=== PATIENT | female | born 1985 | race Caucasian/White ===

== ENCOUNTER 2019-02-04 10:54 | Outpatient (REF) | payer MEDICAID, SELFPAY ==
--- NOTE | 2019-02-04 11:20 | PAPFT_PTH ---
PATIENT: Sury Bhandari LOC: [facility] U#:[id number] AGE/SX: 33/F ROOM: RE02/04/[address]: Jessica Noguera RN : 1985 BED: DIS: 02/04/2019 SPEC #: [id number] RECD: 02/04/19 12:54 STATUS: [place] REJoe #: [id number] MADDI: 02/04/19 11:[address]: Jessica Noguera DEPT: [facility]LY [facility], [facility] Cytology RECD BY: Coretta Gonzalez ENTERED: 02/04/19 12:54 SP TYPE: PAPFT OTHR DR: Juani Reed DNP Tissues: 1 - CX/ENDOCX FOR PAP SMEARS Procedures: PAP THIN PREP/UVM Screening HPV DNA PROBE Comments: [id number]
[2019-02-04 11:59] LABS: *AMPHETAMINES SCREEN URINE Negative (Negative); *BARBITURATES SCREEN URINE Negative (Negative); *BENZODIAZEPINES SCREEN URINE Negative (Negative); Cannabinoids THC Negative (Negative); Cocaine Screen,Urine Negative (Negative); METHADONE URINE SCREEN Negative (Negative); OPIATES URINE SCREEN Negative (Negative)
[2019-02-04 12:10] LABS: Tricyclic Antidepressants Negative (Negative)
[2019-02-04 12:34] LABS: Abs Immature Grans 0.02 k/cumm (0.0-0.09); Absolute Basophil Count 0.01 k/cumm (0.0-0.2); Absolute Eosinophil Count 0.02 k/cumm (0.0-0.7); Absolute Lymphocyte Count 1.35 k/cumm (1.2-3.4); Absolute Monocyte Count 0.56 k/cumm (0.11-0.7); Absolute Neutrophil Count 6.09 k/cumm (1.2-6.7); Basophils % 0.1; Eosinophils % 0.2; HCT 38.7 % (36.0-46.0); HGB 13.2 g/dL (12.0-15.5); Immature Grans % 0.2; Lymphocytes % 16.8; Mean Corp. HGB Concentration 34.1 g/dL (32.0-36.0); Mean Corpuscular Hemoglobin 31.7 pg (27.0-33.0); Mean Corpuscular Volume 92.8 fL (80-95); Mean Platelet Volume 9.9 fL (8.0-11.0); Neutrophils % 75.7; Platelet Count 243 x1000/uL (130-400); RBC 4.17 m/cumm (4.00-5.20); RBC Distribution Width 12.1 % (11.7-14.6); White Blood Cell Count 8.05 k/cumm (4.4-10.8)
[2019-02-04 13:00] LABS: TSH (W/Ref FT4) 1.12 uIU/mL (0.36-3.74)
[2019-02-05 11:05] LABS: HIV-1/2 Ag & Ab Screen Negative (Negative)
[2019-02-05 11:06] LABS: Hepatitis B Surface Ag Negative (Negative); Hepatitis C Ab w Rflx HCV PCR Negative (Negative)
[2019-02-05 13:01] LABS: Rubella IgG Ab (UVM) Positive (See Note); Varicella IgG Antibody Positive (See Note)
[2019-02-05 15:15] LABS: Syphilis Total Ab w/Reflex Nonreactive (Nonreactive)
[2019-02-11 09:37] LABS: Chlamydia Result Negative (Negative)
[2019-02-11 09:40] LABS: GC Result Negative (Negative)
[2019-02-11 14:23] LABS: Buprenorphine Negative; Norbuprenorphine Negative
== END 2019-02-04 11:14 ==
LOC: LBN 10:54
PROVIDERS: PCP Nurse Practitioner Gerontology; Visit Provider Advanced Practice Midwife
DX: Z34.91 Encounter for supervision of normal pregnancy, unspecified, first trimester (principal); Z11.4 Encounter for screening for human immunodeficiency virus [HIV]; Z11.3 Encounter for screening for infections with a predominantly sexual mode of transmission; Z11.59 Encounter for screening for other viral diseases; Z01.84 Encounter for antibody response examination; Z12.4 Encounter for screening for malignant neoplasm of cervix
CPT/HCPCS: 36415; 80307; 86787; 86803; 86850; 86900; 86901; 87340; 87389; 87491; 87591; 88142; 84443; 85025; 86762; 86780; 87086; 87624

== ENCOUNTER 2019-02-06 08:03 | Outpatient (CLI) | payer MEDICAID, SELFPAY ==
[2019-02-06 09:08] LABS: Glucose,1 Hr (Glucola) 95 mg/dL (80-140)
== END 2019-02-06 08:23 ==
PROVIDERS: PCP Nurse Practitioner Gerontology; Visit Provider Advanced Practice Midwife
DX: Z34.91 Encounter for supervision of normal pregnancy, unspecified, first trimester (principal)
CPT/HCPCS: 36415; 82950

== ENCOUNTER 2019-03-04 10:11 | Outpatient (CLI) | payer MEDICAID, SELFPAY ==
[2019-03-04 10:31] LABS: Kit/Specimen SENT
== END 2019-03-04 10:31 ==
PROVIDERS: PCP Nurse Practitioner Gerontology; Visit Provider Advanced Practice Midwife
DX: Z34.92 Encounter for supervision of normal pregnancy, unspecified, second trimester (principal); Z36.89 Encounter for other specified antenatal screening
CPT/HCPCS: 36415

== ENCOUNTER 2019-03-26 00:46 | Outpatient (CLI) | payer MEDICAID, SELFPAY ==
--- NOTE | 2019-03-26 09:56 | DI.US_ITS ---
EXAM: US OB 2-3 TRIMESTER CLINICAL HISTORY: 18 wk anatomy survey, Z34.90 TECHNIQUE: Ultrasound performed using standard protocol. COMPARISON: No exams were available for comparison FINDINGS: Fetus is in breech position. The placenta is posterior and low lying. The edge of the placenta nirmal ures 1.7 cm from the internal os. The biometric measurements correspond to 18 weeks 6 days. No feta l abnormalities are identified.
== END 2019-03-26 01:06 ==
PROVIDERS: PCP Nurse Practitioner Gerontology; Visit Provider Advanced Practice Midwife
DX: Z34.92 Encounter for supervision of normal pregnancy, unspecified, second trimester (principal); Z3A.18 18 weeks gestation of pregnancy
CPT/HCPCS: 76805

== ENCOUNTER 2019-05-27 01:08 | Outpatient (CLI) | payer MEDICAID, SELFPAY ==
--- NOTE | 2019-05-27 08:00 | DI.US_ITS ---
EXAM: US OB F/U FACIAL/LVOT/RVOT CLINICAL HISTORY: low lying placenta looking for migration, Z34.90. COMPARISON: US OB 2-3 TRIMESTER from 03/26/2019 TECHNIQUE: Transabdominal Transvaginal first trimester obstetrical ultrasound performed. FINDINGS: Sonographic images demonstrate a single intrauterine gestation. Fetus is in the cephalic presentation. The heart rate is 150 beats per minute. The placenta is posterior. There is no evidence of previa. The placental tip is 4.2 cm in the inter nal os. IMPRESSION: Single, living intrauterine gestation. No evidence of placenta previa or low-lying placenta. DATA REPOSITORY:
[2019-05-27 10:42] LABS: HGB 11.6 g/dL (12.0-15.5); Mean Corp. HGB Concentration 33.1 g/dL (32.0-36.0); Mean Corpuscular Hemoglobin 31.4 pg (27.0-33.0); Mean Corpuscular Volume 94.9 fL (80-95); Mean Platelet Volume 9.9 fL (8.0-11.0); Platelet Count 206 x1000/uL (130-400); RBC 3.69 m/cumm (4.00-5.20); RBC Distribution Width 12.5 % (11.7-14.6); White Blood Cell Count 9.42 k/cumm (4.4-10.8)
[2019-05-27 10:49] LABS: Glucose,1 Hr (Glucola) 100 mg/dL (80-140)
== END 2019-05-27 01:28 ==
PROVIDERS: PCP Nurse Practitioner Gerontology; Visit Provider Advanced Practice Midwife
DX: Z34.92 Encounter for supervision of normal pregnancy, unspecified, second trimester (principal)
CPT/HCPCS: 36415; 76815; 82950; 85027

== ENCOUNTER 2019-07-29 12:22 | Outpatient (REF) | payer MEDICAID, SELFPAY ==
[2019-07-29 14:07] LABS: *AMPHETAMINES SCREEN URINE Negative (Negative); *BARBITURATES SCREEN URINE Negative (Negative); *BENZODIAZEPINES SCREEN URINE Negative (Negative); Cannabinoids THC Negative (Negative); Cocaine Screen,Urine Negative (Negative); METHADONE URINE SCREEN Negative (Negative); OPIATES URINE SCREEN Negative (Negative); Tricyclic Antidepressants Negative (Negative)
== END 2019-07-29 12:42 ==
LOC: LBN 12:22
PROVIDERS: PCP Nurse Practitioner Gerontology; Visit Provider Advanced Practice Midwife
DX: Z34.93 Encounter for supervision of normal pregnancy, unspecified, third trimester (principal); Z36.85 Encounter for antenatal screening for Streptococcus B; F11.11 Opioid abuse, in remission
CPT/HCPCS: 80307; 87081

== ENCOUNTER 2019-08-06 01:26 | Outpatient (CLI) | payer MEDICAID, SELFPAY ==
--- NOTE | 2019-08-06 06:00 | DI.US_ITS ---
EXAM: US OB KRYSTAL WEIGHT CLINICAL HISTORY: S>D,O26.843,SIZE OF FETUS INCONSISTENT. TECHNIQUE: Transabdominal obstetrical ultrasound performed. COMPARISON: US US OB F/U FACIAL/LVOT/RVOT from 05/27/2019 FINDINGS: There is a single living intrauterine gestation. The fetus is in the cephalic presentation. The heart rate is measured at 119-128 beats per min agustin. The estimated gestational age is 38 weeks 1 day. A complete anatomic evaluation was not perfor med at this time. The estimated weight is 3357 g. This is the 80th percentile. The amniotic fluid index is 21.1 cm. Visually the amniotic fluid appears within normal limits. The placenta is posterior without evidence of previa. IMPRESSION: Single live intrauterine gestation as above. DATA REPOSITORY:
== END 2019-08-06 01:46 ==
PROVIDERS: Visit Provider Advanced Practice Midwife
DX: O26.843 Uterine size-date discrepancy, third trimester (principal); Z3A.38 38 weeks gestation of pregnancy
CPT/HCPCS: 76816

== ENCOUNTER 2019-08-06 10:01 | Outpatient (REF) | payer MEDICAID, SELFPAY ==
[2019-08-06 10:40] LABS: ALT 27 U/L (14-59); AST 20 U/L (15-37); Albumin 2.6 g/dL (3.4-5.0); Alkaline Phosphatase 95 U/L (46-116); Anion Gap 7.6 mmol/L (3-11); BUN 4 mg/dL (7-18); Bilirubin, Total 0.2 mg/dL (0.2-1.0); CO2 25.4 mmol/L (21.0-32.0); CREATININE 0.62 mg/dL (0.55-1.02); Chloride 103 mmol/L (98-107); Glucose 102 mg/dL (74-106); Potassium 3.6 mmol/L (3.5-5.1); Sodium 136 mmol/L (136-145); Total Protein 6.3 g/dL (6.4-8.2)
[2019-08-06 10:52] LABS: Abs Immature Grans 0.02 k/cumm (0.0-0.09); Absolute Basophil Count 0.01 k/cumm (0.0-0.2); Absolute Eosinophil Count 0.05 k/cumm (0.0-0.7); Absolute Lymphocyte Count 1.96 k/cumm (1.2-3.4); Absolute Monocyte Count 0.88 k/cumm (0.11-0.7); Basophils % 0.1; Eosinophils % 0.6; HCT 36.7 % (36.0-46.0); HGB 12.2 g/dL (12.0-15.5); Immature Grans % 0.2 %; Lymphocytes % 22.5; Mean Corp. HGB Concentration 33.2 g/dL (32.0-36.0); Mean Corpuscular Hemoglobin 31.2 pg (27.0-33.0); Mean Corpuscular Volume 93.9 fL (80-95); Mean Platelet Volume 11.1 fL (8.0-11.0); Monocytes % 10.1; Neutrophils % 66.5; Platelet Count 183 x1000/uL (130-400); RBC 3.91 m/cumm (4.00-5.20); RBC Distribution Width 12.8 % (11.7-14.6); White Blood Cell Count 8.72 k/cumm (4.4-10.8)
[2019-08-06 11:33] LABS: COMMENT (LAB VIEW ONLY) 79.42 mg/dL; PROTEIN 12.7 mg/dL; Prot/Crea Ur Ratio 0.15
[2019-08-11 07:40] LABS: Buprenorphine Negative; Norbuprenorphine Negative
== END 2019-08-06 10:21 ==
LOC: LBN 10:01
PROVIDERS: Visit Provider Obstetrics & Gynecology
DX: O13.3 Gestational [pregnancy-induced] hypertension without significant proteinuria, third trimester (principal); O26.843 Uterine size-date discrepancy, third trimester
CPT/HCPCS: 80053; 80307; 82565; 84156; 85025

== ENCOUNTER 2019-08-16 08:19 | Outpatient (CLI) | payer MEDICAID, SELFPAY ==
[2019-08-17 11:18] LABS: COVID-19 RT-PCR UVMMC Result Negative (Negative)
== END 2019-08-16 08:39 ==
PROVIDERS: PCP Family Medicine; Visit Provider Obstetrics & Gynecology
DX: Z11.59 Encounter for screening for other viral diseases (principal)
CPT/HCPCS: U0003

== ENCOUNTER 2019-08-20 06:01 | Inpatient (IN) | payer MEDICAID, SELFPAY ==
--- NOTE | 2019-08-19 15:08 | HPE_ITS ---
Date of service: 08/19/19 Time of Service: 15:09 Assessment and Plan Assessment and plan (1) section: Status: Active Assessment and plan: Patient will have repeat section. Risks benefits and alternatives the procedure have been explained to the patient. Full informed consent was obtained. (2) : Status: Acute (3) Gestational hypertension: Status: Acute (4) History of depression, currently in second trimester: Status: Acute (5) BMI 30.0-30.9,adult: Status: Acute History of Present Illness History of Present Illness Chief Complaint: at 39 weeks for repeat section Narrative: Patient will present to [facility] for repeat section at 39 weeks gestation. She had a prior section with prolonged rupture of membranes. Review of Systems All systems reviewed & are unremarkable except as noted in HPI and below PFSH Medical History BMI 30.0-30.9,adult (Acute) Gestational hypertension (Acute) History of depression, currently in second trimester (Acute) Surgical History Hx of section (Chronic) Family History Maternal Grandfather Cancer Paternal Grandfather Cancer Aunt Cancer Aunt Cancer Paternal Grandmother Dementia Social History Smoking/Tobacco Use Status: Former Tobacco Use Alcohol Intake: former Year quit: 2019 Substance use type: does not use Household members: children and other Details: BF-Buzz Number of Children: 1 Sexually active: Yes Seatbelt use: always Do you feel safe at home: Yes Do you feel safe in your relationship?: Yes Female Reproductive History Menstrual control method: none History History 2 Para 1 Hx # Term Pregnancies 1 Multiple births 0 Hx # Pregnancies 0 Ectopic pregnancies 0 AB induced 0 Hx Number of Living Children 1 AB spontaneous 0 Past Pregnancies Del. Date GA/Weeks # Outcome Route Wgt Sex Labor Lgth Anesthes ia Loc ation Prov Complic Unknown regional 07/24/12 41 No Successful 9 lb 2 oz Male 24hrs Galilea Ribeiro MD [facility] Delivery Date: pt had spontaneous onset of labor. then had arrest of dilation. RADHA TOUSSAINT Delivery Date: 07/24/12 Active labor with SROM at 7 cm. From there slow progress with maximum dilation 9 cm and maximum descent 0 station. [facility] [place] Home Medications and Allergies Home Medications Medication Instructions Recorded Confirmed Type prenat.vits,jeff,kxd-sera-hejov 1 tab PO DAILY 12/31/18 08/16/19 History ferrous sulfate 325 mg (65 mg 325 mg PO DAILY 04/01/19 08/16/19 History iron) tablet magnesium 250 mg tablet 250 mg PO DAILY 04/01/19 08/16/19 History pantoprazole 40 mg tablet,delayed 40 mg PO DAILY #30 tab 06/15/19 08/16/19 Rx release Allergies Allergy/AdvReac Type Severity Reaction Status Date / Time No Known Allergies Allergy Verified 08/16/19 10:05 Results Labs Result diagrams: 08/19/19 15:08 COVID-19 Screening In the past 14 days, have you traveled outside of [place] or [place]?: NO
[2019-08-20 06:16] VITALS: BP 121/73; PULSE 90; RESP 18; TEMP 36.6; O2SAT 98
[2019-08-20 06:33] VITALS: BP 121/73; PULSE 90; RESP 18; TEMP 36.6; O2SAT 98
[2019-08-20] MEDS: AZITHROMYCIN 500 MG in Normal Saline 250 ML 250 MG IVPB (06:39)
[2019-08-20] MEDS: Lactated Ringers 1,000 ML 125 ML IV (06:39)
[2019-08-20] MEDS: Sodium Citrate 30 ML CUP (07:16)
[2019-08-20] MEDS: ceFAZolin 2 GM/50 ML BAG IVPB (07:38)
[2019-08-20 08:08] LABS: Abs Immature Grans 0.03 k/cumm (0.0-0.09); Absolute Basophil Count 0.01 k/cumm (0.0-0.2); Absolute Eosinophil Count 0.05 k/cumm (0.0-0.7); Absolute Monocyte Count 0.85 k/cumm (0.11-0.7); Absolute Neutrophil Count 5.17 k/cumm (1.2-6.7); Basophils % 0.1; Eosinophils % 0.6; HCT 35.4 % (36.0-46.0); Immature Grans % 0.4 %; Lymphocytes % 25.6; Mean Corp. HGB Concentration 33.9 g/dL (32.0-36.0); Mean Corpuscular Hemoglobin 32.1 pg (27.0-33.0); Mean Corpuscular Volume 94.7 fL (80-95); Mean Platelet Volume 11.3 fL (8.0-11.0); Monocytes % 10.4; Neutrophils % 62.9; Platelet Count 156 x1000/uL (130-400); RBC 3.74 m/cumm (4.00-5.20); RBC Distribution Width 13.3 % (11.7-14.6); White Blood Cell Count 8.21 k/cumm (4.4-10.8)
[2019-08-20] MEDS: Oxytocin/Normal Saline 30 UNITS/500 ML BAG 95 UNITS IV (08:45)
--- NOTE | 2019-08-20 09:20 | W.PM.OP ---
Date of service: 08/20/19 Time of Service: 09:20 Operative Note Operative Note DATE OF PROCEDURE: 08/20/19 PRE-OP DIAGNOSIS: at 39 week Gestational Hypertension Prior Section POST-OP DIAGNOSIS: same Macrosomia Dense Pelvic Adhesions SURGEON: Willa Ramirez ANESTHESIA: spinal ESTIMATED BLOOD LOSS: 800 COMPLICATIONS: None Patient was transported to: floor Patient's condition: stable Indications: Prior Section Findings: Dense adhesions of the lower and mid uterine segment to the anterior abdominal wall. Delivery of viable female weighing 9 pounds 15 ounces with Apgars 6 and 9 Normal-appearing tubes and ovaries bilaterally Procedure Description: This patient is a 33-year-old female 2 para 1 with history of prior low transverse section for arrest of labor. She progressed to approximately 8 to 9 cm previously and was unable to deliver her 9 pound infant. She had a primary section for that reason. Her course was complicated by gestational hypertension during this . Due to history of macrosomia and arrest of labor, with prior macrosomic infant and suspicion for macrosomia with this she requested repeat section. Risks and benefits of surgery have been explained to the patient occluding risk of anesthesia, infection, bleeding, injury to surrounding organs, risk of blood clot, anesthetic risk, and . Full informed consent was obtained. Patient was taken the operating suite with an IV running where she was placed in the seated position and spinal anesthesia administered tested and found to be adequate. She is then placed in dorsal supine position with leftward tilt and prepped and draped in the usual sterile fashion. Ham catheter had been inserted for continuous bladder drainage. A Pfannenstiel skin incision was made through her previous abdominal scar. This was carried down to the underlying fascia which was nicked in the midline and fascial incision extended laterally. In the midline there was noted to be adhesions of the omentum to the anterior abdominal wall which were meticulously dissected after peritoneum opened. There was noted to be a large adhesion band approximately 4 x 4 cm tethering the mid body of the uterus to the anterior abdominal wall this was meticulously dissected away from the intra-abdominal wall with sharp dissection allowing access to the pelvis. At this point the bladder blade was inserted and the vesicouterine peritoneum identified. The bladder flap was created sharply with scissors and extended laterally. Bladder blade was then reinserted and a low transverse uterine incision was made. There was copious amounts of amniotic fluid and vertex was floating. With approximately 5 minutes of gentle downward traction on the breech and gentle extraction of the vertex through the incision baby was delivered in the vertex position. There is noted to be nuchal cord x2 which was easily reduced. Three-vessel cord was noted clamped x2 and cut and the infant was handed off to the waiting pediatric team. At this point the uterus was exteriorized and cleared of all clot and debris. The uterine incision was closed using 0 Vicryl suture in a running locked fashion and found to be hemostatic. Attention was then turned to the adhesive area where Bovie cautery and 2 sutures of 2-0 Vicryl were used to maintain hemostasis. At this point the uterus was returned to the abdomen abdomen irrigated with copious amounts of normal saline the uterine incision as well as the adhesive bed were both inspected and found to be hemostatic. Tubes and ovaries were normal bilaterally. At this point the fascial incision was closed using 0 Vicryl suture in a running fashion subcutaneous tissue irrigated with copious amounts of normal saline fat subcu tissue reapproximated with 3-0 Vicryl in a simple interrupted fashion. Skin edge was then reapproximated with 4-0 Monocryl suture in a subcuticular fashion Steri-Strips and dressing were placed. Patient was then taken from the OR to the birthing center for recovery. Patient tolerated procedure without difficulty complications are none apparent. Ham catheter in place draining clear yellow urine. EBL 800 cc Fluid 600 cc crystalloid per anesthesia Urine output 100 cc dark yellow urine Viable female infant Apgars 6 and 9 with an estimated weight of 9 pounds 15 ounces
[2019-08-20] MEDS: Lactated Ringers 1,000 ML 120 ML IV (11:53)
[2019-08-20] MEDS: Normal Saline Flush 10 ML SYR IVP (11:54)
[2019-08-20] MEDS: Naloxone 0.4 MG/ML VIAL IVP (11:55)
[2019-08-20] MEDS: Ibuprofen 600 MG TAB PO (19:50)
[2019-08-20] MEDS: Docusate Sodium 100 MG CAP PO (19:50)
[2019-08-20] MEDS: Acetaminophen 325 MG TAB 650 MG PO (19:51)
[2019-08-21] MEDS: oxyCODONE 5 mg/Acetaminophen 325 mg TAB PO ×2 (01:35→09:09)
[2019-08-21 07:07] LABS: HCT 33.9 % (36.0-46.0); HGB 11.5 g/dL (12.0-15.5); Mean Corp. HGB Concentration 33.9 g/dL (32.0-36.0); Mean Corpuscular Hemoglobin 32.1 pg (27.0-33.0); Mean Corpuscular Volume 94.7 fL (80-95); Mean Platelet Volume 10.9 fL (8.0-11.0); Platelet Count 150 x1000/uL (130-400); RBC 3.58 m/cumm (4.00-5.20); RBC Distribution Width 13.2 % (11.7-14.6); White Blood Cell Count 11.03 k/cumm (4.4-10.8)
--- NOTE | 2019-08-21 07:44 | W.PM.PROGNOT ---
Date of Service Date of service: 08/21/19 Time of Service: 07:44 Assessment and Plan Assessment and plan (1) Status post repeat low transverse section: Status: Acute Assessment and plan: Patient is postoperative day 1 today. She is doing well. Will add simethicone for relief with gas. She may shower today, saline lock will be out. Dressing will be removed. Anticipate discharge home in the next 24 to 48 hours. (2) Gestational hypertension: Status: Acute (3) Size of fetus inconsistent with dates in third trimester: Status: Acute (4) History of depression, currently in second trimester: Status: Acute Subjective Subjective Interval history since last seen: Sury was seen and examined this morning. She is doing well. Baby is latching reasonably well and she is nursing without significant difficulty. Her pain is mild and well controlled with oral pain medication. She is tolerating a regular diet and she has been ambulating. Her Ham catheter is out and she is doing well this morning. Exam Const General: cooperative, healthy appearing and comfortable Resp Effort & Inspection: normal respiratory effort Cardio Rate: regular rate Rhythm: regular rhythm GI Palpation: soft Objective Objective Clinical Data: Abnormal lab results 08/20/19 08/21/19 Range/Units 06:55 06:54 WBC 11.03 H D (4.4-10.8) k/cumm RBC 3.74 L 3.58 L (4.00-5.20) m/cumm Hgb 11.5 L (12.0-15.5) g/dL Hct 35.4 L 33.9 L (36.0-46.0) % MPV 11.3 H (8.0-11.0) fL Absolute Monocytes 0.85 H (0.11-0.7) k/cumm Vital Signs Temperature 97.9 F 08/20/19 06:33 Pulse 90 08/20/19 06:33 Pulse Rhythm Regular 08/20/19 06:33 Respiratory Rate 18 08/20/19 06:33 Respiratory Effort 08/20/19 06:33 Respiratory Depth Normal 08/20/19 06:33 Respiratory Pattern Normal 08/20/19 06:33 Blood Pressure 121/73 08/20/19 06:33 Pulse Oximetry 98 08/20/19 06:33 Oxygen Delivery Method Room Air 08/20/19 06:33 Oxygen Flow Rate 0 08/20/19 06:33 Pain Level 7 08/21/19 01:35 Intake & Output 08/20/19 08/20/19 08/21/19 11:59 23:59 11:59 Intake Total 1400 / 1937.280 537.280 / 1937.280 Output Total 900 / 900 Balance 500 / 1037.280 537.280 / 1037.280 Weight 217 lb 6.012 oz Intake: IV 1400 / 1937.280 537.280 / 1937.280 Output: Urine 100 / 100 Estimated Blood Loss 800 / 800 Other: Urine Color Yellow Urine Appearance Clear Laboratory Results WBC 11.03 k/cumm (4.4-10.8) H D 08/21/19 06:54 RBC 3.58 m/cumm (4.00-5.20) L 08/21/19 06:54 Hgb 11.5 g/dL (12.0-15.5) L 08/21/19 06:54 Hct 33.9 % (36.0-46.0) L 08/21/19 06:54 MCV 94.7 fL (80-95) 08/21/19 06:54 MCH 32.1 pg (27.0-33.0) 08/21/19 06:54 MCHC 33.9 g/dL (32.0-36.0) 08/21/19 06:54 RDW 13.2 % (11.7-14.6) 08/21/19 06:54 Plt Count 150 x1000/uL (130-400) 08/21/19 06:54 MPV 10.9 fL (8.0-11.0) 08/21/19 06:54 Immature Gran % 0.4 % 08/20/19 06:55 Neutrophils % 62.9 08/20/19 06:55 Lymphocytes % 25.6 08/20/19 06:55 Monocytes % 10.4 08/20/19 06:55 Eosinophils % 0.6 08/20/19 06:55 Basophils % 0.1 08/20/19 06:55 Absolute Neutrophils 5.17 k/cumm (1.2-6.7) 08/20/19 06:55 Absolute Lymphocytes 2.10 k/cumm (1.2-3.4) 08/20/19 06:55 Absolute Monocytes 0.85 k/cumm (0.11-0.7) H 08/20/19 06:55 Absolute Eosinophils 0.05 k/cumm (0.0-0.7) 08/20/19 06:55 Absolute Basophils 0.01 k/cumm (0.0-0.2) 08/20/19 06:55 Patient ABO/Rh A Positive 08/20/19 06:55 Antibody Screen Negative 08/20/19 06:55
[2019-08-21] MEDS: Simethicone 80 MG CHEW 40 MG PO ×2 (08:54→12:23)
[2019-08-21] MEDS: Ibuprofen 600 MG TAB PO (09:59)
--- NOTE | 2019-08-21 11:09 | W.PM.PROGNOT ---
Date of Service Date of service: 08/21/19 Time of Service: 11:09 Subjective Subjective Patient reports: no flatus and vomiting Interval history since last seen: Will add Zofran and monitor KJ Objective Objective Clinical Data: Abnormal lab results 08/21/19 Range/Units 06:54 WBC 11.03 H D (4.4-10.8) k/cumm RBC 3.58 L (4.00-5.20) m/cumm Hgb 11.5 L (12.0-15.5) g/dL Hct 33.9 L (36.0-46.0) % Vital Signs Temperature 97.9 F 08/20/19 06:33 Pulse 90 08/20/19 06:33 Pulse Rhythm Regular 08/20/19 06:33 Respiratory Rate 18 08/20/19 06:33 Respiratory Effort 08/20/19 06:33 Respiratory Depth Normal 08/20/19 06:33 Respiratory Pattern Normal 08/20/19 06:33 Blood Pressure 121/73 08/20/19 06:33 Pulse Oximetry 98 08/20/19 06:33 Oxygen Delivery Method Room Air 08/20/19 06:33 Oxygen Flow Rate 0 08/20/19 06:33 Pain Level 9 08/21/19 09:59 Intake & Output 08/20/19 08/20/19 08/21/19 11:59 23:59 11:59 Intake Total 1400 / 1937.280 537.280 / 1937.280 Output Total 900 / 900 Balance 500 / 1037.280 537.280 / 1037.280 Weight 217 lb 6.012 oz Intake: IV 1400 / 1937.280 537.280 / 1937.280 Output: Urine 100 / 100 Estimated Blood Loss 800 / 800 Other: Urine Color Yellow Urine Appearance Clear Laboratory Results WBC 11.03 k/cumm (4.4-10.8) H D 08/21/19 06:54 RBC 3.58 m/cumm (4.00-5.20) L 08/21/19 06:54 Hgb 11.5 g/dL (12.0-15.5) L 08/21/19 06:54 Hct 33.9 % (36.0-46.0) L 08/21/19 06:54 MCV 94.7 fL (80-95) 08/21/19 06:54 MCH 32.1 pg (27.0-33.0) 08/21/19 06:54 MCHC 33.9 g/dL (32.0-36.0) 08/21/19 06:54 RDW 13.2 % (11.7-14.6) 08/21/19 06:54 Plt Count 150 x1000/uL (130-400) 08/21/19 06:54 MPV 10.9 fL (8.0-11.0) 08/21/19 06:54 Immature Gran % 0.4 % 08/20/19 06:55 Neutrophils % 62.9 08/20/19 06:55 Lymphocytes % 25.6 08/20/19 06:55 Monocytes % 10.4 08/20/19 06:55 Eosinophils % 0.6 08/20/19 06:55 Basophils % 0.1 08/20/19 06:55 Absolute Neutrophils 5.17 k/cumm (1.2-6.7) 08/20/19 06:55 Absolute Lymphocytes 2.10 k/cumm (1.2-3.4) 08/20/19 06:55 Absolute Monocytes 0.85 k/cumm (0.11-0.7) H 08/20/19 06:55 Absolute Eosinophils 0.05 k/cumm (0.0-0.7) 08/20/19 06:55 Absolute Basophils 0.01 k/cumm (0.0-0.2) 08/20/19 06:55 Patient ABO/Rh A Positive 08/20/19 06:55 Antibody Screen Negative 08/20/19 06:55
[2019-08-21] MEDS: Ondansetron O.D.T. 4 MG TABEF PO (11:22)
[2019-08-21] MEDS: Docusate Sodium 100 MG CAP PO (12:23)
[2019-08-21] MEDS: Lactated Ringers 1,000 ML 500 ML IV (13:28)
[2019-08-21] MEDS: Normal Saline Flush 10 ML SYR IVP ×2 (13:29→15:48)
[2019-08-21] MEDS: Metoclopramide 10 MG/2 ML VIAL IVP (15:48)
[2019-08-21] MEDS: Lactated Ringers 1,000 ML 125 ML IV (18:03)
[2019-08-22] MEDS: Acetaminophen 325 MG TAB 650 MG PO ×3 (06:32→17:16)
[2019-08-22] MEDS: Ibuprofen 600 MG TAB PO ×3 (06:33→17:17)
[2019-08-22] MEDS: Simethicone 80 MG CHEW 40 MG PO (06:33)
[2019-08-22] MEDS: Docusate Sodium 100 MG CAP PO (06:33)
--- NOTE | 2019-08-22 06:41 | PGE_ITS ---
Date of Service Date of service: 08/22/19 Time of Service: 06:41 Assessment and Plan Assessment and plan (1) Status post repeat low transverse section: Status: Acute Assessment and plan: Postoperative day #2 ambulating, passing flatus and having bowel movements today with significant improvement. No nausea or vomiting this morning. Patient is hungry desires regular diet. Will advance diet as tolerated. Continue to ambulate. Continue to work on breast-feeding. Anticipate discharge home tomorrow if stable. Subjective Subjective Patient reports: pain is less, voiding w/o difficulty, flatus and bowel movement; denies nausea, vomiting and shortness of breath Interval history since last seen: Patient is significantly improved from yesterday. She did have 2 bowel movements yesterday and is currently passing flatus. She is hungry and requests a regular diet. Exam Const General: cooperative, healthy appearing and comfortable Orientation: alert and oriented x3 Resp Effort & Inspection: normal respiratory effort Cardio Rate: regular rate Rhythm: regular rhythm GI Palpation: soft, no guarding and nontender Auscultation: normal bowel sounds Other: Significantly less distended than yesterday. Abdomen is soft and nontender. Incision healing well without surrounding erythema or induration Extrem Other: 1+ lower extremity edema without calf tenderness or evidence of DVT Objective Objective Clinical Data: Abnormal lab results 08/21/19 Range/Units 06:54 WBC 11.03 H D (4.4-10.8) k/cumm RBC 3.58 L (4.00-5.20) m/cumm Hgb 11.5 L (12.0-15.5) g/dL Hct 33.9 L (36.0-46.0) % Vital Signs Temperature 97.9 F 08/20/19 06:33 Pulse 90 08/20/19 06:33 Pulse Rhythm Regular 08/20/19 06:33 Respiratory Rate 18 08/20/19 06:33 Respiratory Effort 08/20/19 06:33 Respiratory Depth Normal 08/20/19 06:33 Respiratory Pattern Normal 08/20/19 06:33 Blood Pressure 121/73 08/20/19 06:33 Pulse Oximetry 98 08/20/19 06:33 Oxygen Delivery Method Room Air 08/20/19 06:33 Oxygen Flow Rate 0 08/20/19 06:33 Pain Level 2 08/22/19 06:33 Intake & Output 08/21/19 08/21/19 08/22/19 11:59 23:59 11:59 Intake Total 500 / 500 Balance 500 / 500 Intake: IV 500 / 500 Laboratory Results WBC Cancelled 08/22/19 05:35 RBC Cancelled 08/22/19 05:35 Hgb Cancelled 08/22/19 05:35 Hct Cancelled 08/22/19 05:35 MCV Cancelled 08/22/19 05:35 MCH Cancelled 08/22/19 05:35 MCHC Cancelled 08/22/19 05:35 RDW Cancelled 08/22/19 05:35 Plt Count Cancelled 08/22/19 05:35 MPV Cancelled 08/22/19 05:35 Immature Gran % Cancelled 08/22/19 05:35 Neutrophils % Cancelled 08/22/19 05:35 Band Neutrophils % Cancelled 08/22/19 05:35 Lymphocytes % Cancelled 08/22/19 05:35 Atypical Lymphs % Cancelled 08/22/19 05:35 Monocytes % Cancelled 08/22/19 05:35 Eosinophils % Cancelled 08/22/19 05:35 Basophils % Cancelled 08/22/19 05:35 Metamyelocytes % Cancelled 08/22/19 05:35 Myelocytes % Cancelled 08/22/19 05:35 Promyelocytes % Cancelled 08/22/19 05:35 Absolute Neutrophils Cancelled 08/22/19 05:35 Absolute Lymphocytes Cancelled 08/22/19 05:35 Absolute Monocytes Cancelled 08/22/19 05:35 Absolute Eosinophils Cancelled 08/22/19 05:35 Absolute Basophils Cancelled 08/22/19 05:35 Nucleated RBCs Cancelled 08/22/19 05:35 Differential Comment Cancelled 08/22/19 05:35 Other Cell Type Cancelled 08/22/19 05:35 RBC Morphology Cancelled 08/22/19 05:35 Polychromasia Cancelled 08/22/19 05:35 Hypochromasia Cancelled 08/22/19 05:35 Poikilocytosis Cancelled 08/22/19 05:35 Basophilic Stippling Cancelled 08/22/19 05:35 Anisocytosis Cancelled 08/22/19 05:35 Microcytosis Cancelled 08/22/19 05:35 Macrocytosis Cancelled 08/22/19 05:35 Spherocytes Cancelled 08/22/19 05:35 Target Cells Cancelled 08/22/19 05:35 Tear Drop Cells Cancelled 08/22/19 05:35 Ovalocytes Cancelled 08/22/19 05:35 Stomatocytes Cancelled 08/22/19 05:35 [place] Bodies Cancelled 08/22/19 05:35 [place] Cells Cancelled 08/22/19 05:35 Acanthocytes (Spur) Cancelled 08/22/19 05:35 Schistocytes Cancelled 08/22/19 05:35 Patient ABO/Rh A Positive 08/20/19 06:55 Antibody Screen Negative 08/20/19 06:55
--- NOTE | 2019-08-23 06:50 | PGE_ITS ---
Date of Service Date of service: 08/23/19 Time of Service: 06:50 Assessment and Plan Assessment and plan (1) Status post repeat low transverse section: Status: Acute Assessment and plan: Postoperative day #3 status post repeat low transverse section. Slow bowel function postop day #1 with resolution at this point. She will be discharged home. Prescriptions for Motrin and Percocet and Colace sent to the pharmacy. She will be [facility] 2 weeks for incision check. Precautions given. Subjective Subjective Patient reports: no new complaints, feels better, pain is less, voiding w/o difficulty and bowel movement; denies nausea Interval history since last seen: Sury was seen in this morning. She is feeling great. She has been up moving around, tolerating regular diet and oral pain medication. She has both breast-feeding and supplementing with formula. She has also been pumping breastmilk with good result. Exam Const General: cooperative, healthy appearing, comfortable and no acute distress Orientation: alert and oriented x3 Eyes General: appearance normal, both eyes and all related structures Resp Effort & Inspection: normal respiratory effort Cardio Rate: regular rate Rhythm: regular rhythm GI Inspection: normal to inspection, non-distended and incision Palpation: soft Auscultation: normal bowel sounds Other: Incision is healing well. Well approximated. No surrounding erythema or edema. Steri-Strips are in place. Skin General skin exam: no rashes or lesions noted Extrem Other: Scant lower extremity edema. No calf tenderness. No evidence of deep venous thrombosis Objective Objective Clinical Data: Vital Signs Temperature 97.9 F 08/20/19 06:33 Pulse 90 08/20/19 06:33 Pulse Rhythm Regular 08/20/19 06:33 Respiratory Rate 18 08/20/19 06:33 Respiratory Effort 08/20/19 06:33 Respiratory Depth Normal 08/20/19 06:33 Respiratory Pattern Normal 08/20/19 06:33 Blood Pressure 121/73 08/20/19 06:33 Pulse Oximetry 98 08/20/19 06:33 Oxygen Delivery Method Room Air 08/20/19 06:33 Oxygen Flow Rate 0 08/20/19 06:33 Pain Level 6 08/22/19 17:17 Laboratory Results WBC Cancelled 08/22/19 05:35 RBC Cancelled 08/22/19 05:35 Hgb Cancelled 08/22/19 05:35 Hct Cancelled 08/22/19 05:35 MCV Cancelled 08/22/19 05:35 MCH Cancelled 08/22/19 05:35 MCHC Cancelled 08/22/19 05:35 RDW Cancelled 08/22/19 05:35 Plt Count Cancelled 08/22/19 05:35 MPV Cancelled 08/22/19 05:35 Immature Gran % Cancelled 08/22/19 05:35 Neutrophils % Cancelled 08/22/19 05:35 Band Neutrophils % Cancelled 08/22/19 05:35 Lymphocytes % Cancelled 08/22/19 05:35 Atypical Lymphs % Cancelled 08/22/19 05:35 Monocytes % Cancelled 08/22/19 05:35 Eosinophils % Cancelled 08/22/19 05:35 Basophils % Cancelled 08/22/19 05:35 Metamyelocytes % Cancelled 08/22/19 05:35 Myelocytes % Cancelled 08/22/19 05:35 Promyelocytes % Cancelled 08/22/19 05:35 Absolute Neutrophils Cancelled 08/22/19 05:35 Absolute Lymphocytes Cancelled 08/22/19 05:35 Absolute Monocytes Cancelled 08/22/19 05:35 Absolute Eosinophils Cancelled 08/22/19 05:35 Absolute Basophils Cancelled 08/22/19 05:35 Nucleated RBCs Cancelled 08/22/19 05:35 Differential Comment Cancelled 08/22/19 05:35 Other Cell Type Cancelled 08/22/19 05:35 RBC Morphology Cancelled 08/22/19 05:35 Polychromasia Cancelled 08/22/19 05:35 Hypochromasia Cancelled 08/22/19 05:35 Poikilocytosis Cancelled 08/22/19 05:35 Basophilic Stippling Cancelled 08/22/19 05:35 Anisocytosis Cancelled 08/22/19 05:35 Microcytosis Cancelled 08/22/19 05:35 Macrocytosis Cancelled 08/22/19 05:35 Spherocytes Cancelled 08/22/19 05:35 Target Cells Cancelled 08/22/19 05:35 Tear Drop Cells Cancelled 08/22/19 05:35 Ovalocytes Cancelled 08/22/19 05:35 Stomatocytes Cancelled 08/22/19 05:35 [place] Bodies Cancelled 08/22/19 05:35 [place] Cells Cancelled 08/22/19 05:35 Acanthocytes (Spur) Cancelled 08/22/19 05:35 Schistocytes Cancelled 08/22/19 05:35 Patient ABO/Rh A Positive 08/20/19 06:55 Antibody Screen Negative 08/20/19 06:55
--- NOTE | 2019-08-23 06:53 | W.PM.DS.N ---
Date of service: 08/23/19 Time of Service: 06:53 DS: Diagnosis Discharge Diagnosis (1) Status post repeat low transverse section: Status: Acute Discharge Plan Disposition Patient Disposition: HOME Condition: Good Discharge Details Reason For Visit: Admit Date/Time: 08/20/19 06:01 Admit Provider: Willa Ramirez Attending Provider: Willa Ramirez [facility] Hospital Course: Patient presented for repeat section. She underwent a repeat section for delivery of a viable female weighing 9 pounds 15 ounces. course was essentially unremarkable. Postoperative day #1 she did have slow bowel function which resolved with GI rest. She is ambulating, tolerating regular diet and oral pain medication with stable vital signs on postoperative day #3. She will be discharged home with appropriate precautions. Prescription sent to the pharmacy. Home Meds and New Rx's Prescriptions: No Action ferrous sulfate [FeroSul] 325 mg (65 mg iron) tablet 325 mg PO DAILY RF: 0 magnesium 250 mg tablet 250 mg PO DAILY RF: 0 prenat.vits,jeff,ark-cnug-xskyv Tablet 1 tab PO DAILY RF: 0 pantoprazole [Protonix] 40 mg tablet,delayed release (DR/EC) 40 mg PO DAILY Qty: 30 RF: 4 Discharge Instructions Additional Instructions: No heavy lifting for the next 6 weeks. No driving until pain is well controlled. Pelvic rest for 6 weeks. Follow-up in women's wellness in 2 weeks for incision check. Monitor for signs and symptoms of preeclampsia. Activity:: Activity as Tolerated Equipment/Supplies:: No Equipment Needed Diet:: Normal Diet Discharge Orders Discharge Orders: Discharge Order (Routine); Ordered 08/23/19 Ordered By: Willa Ramirez DS: Summary Status at Discharge Functional status at discharge: independent ambulation Overall status at discharge: patient is back to baseline Mental Status: mental status grossly normal Speech and Movement: speech and movement normal Mood: congruent mood Affect: normal affect Time Spent with Patient providing and/or coordinating discharge services: Less than 30 minutes Quality: VTE Deep Vein Thrombosis/Pulmonary Embolism Present on Admission: No Exam Narrative Exam Narrative: Patient seen and examined this morning. Doing well. Feels great. Up ambulating. Const General: cooperative Nutritional Appearance: well nourished Orientation: alert and oriented x3 Eyes General: appearance normal, both eyes and all related structures Neck Neck: normal visual inspection Resp Effort & Inspection: normal respiratory effort Cardio Rate: regular rate Rhythm: regular rhythm GI Inspection: normal to inspection and incision Palpation: no guarding and nontender Auscultation: normal bowel sounds Other: Incision is clean dry intact healing well. Steri-Strips are in place. No evidence of seroma or infection Skin General skin exam: no rashes or lesions noted Extrem Other: Scant lower extremity edema. No evidence of DVT. No calf tenderness appreciated. Psych Mental Status: mental status grossly normal Speech and Movement: speech and movement normal Mood: congruent mood Affect: normal affect DS: Data Vitals/I&O Vitals and I&O: Vital Signs Temperature 97.9 F 08/20/19 06:33 Pulse 90 08/20/19 06:33 Pulse Rhythm Regular 08/20/19 06:33 Respiratory Rate 18 08/20/19 06:33 Respiratory Effort 08/20/19 06:33 Respiratory Depth Normal 08/20/19 06:33 Respiratory Pattern Normal 08/20/19 06:33 Blood Pressure 121/73 08/20/19 06:33 Pulse Oximetry 98 08/20/19 06:33 Oxygen Delivery Method Room Air 08/20/19 06:33 Oxygen Flow Rate 0 08/20/19 06:33 Pain Level 6 08/22/19 17:17 [facility] Medical History BMI 30.0-30.9,adult (Acute) Gestational hypertension (Acute) History of depression, currently in second trimester (Acute) Surgical History (Updated 08/21/19 @ 07:46 by Willa Ramirez DO) Hx of section (Chronic) Status post repeat low transverse section (Acute) Family History Maternal Grandfather Cancer Paternal Grandfather Cancer Aunt Cancer Aunt Cancer Paternal Grandmother Dementia Social History Smoking/Tobacco Use Status: Former Tobacco Use Alcohol Intake: former Year quit: 2019 Drug use: Never Substance use type: does not use Household members: children and other Details: BF-Buzz Number of Children: 1 Sexually active: Yes Seatbelt use: always Do you feel safe at home: Yes Do you feel safe in your relationship?: Yes Female Reproductive History Menstrual control method: none History History 2 Para 1 Hx # Term Pregnancies 1 Multiple births 0 Hx # Pregnancies 0 Ectopic pregnancies 0 AB induced 0 Hx Number of Living Children 1 AB spontaneous 0 Past Pregnancies Del. Date GA/Weeks # Outcome Route Wgt Sex Labor Lgth Anesthesia Location Prov Complic Unknown regional 07/24/12 41 No Successful 9 lb 2 oz Male 24hrs Galilea Ribeiro MD [facility] Delivery Date: pt had spontaneous onset of labor. then had arrest of dilation. RADHA TOUSSAINT Delivery Date: 07/24/12 Active labor with SROM at 7 cm. From there slow progress with maximum dilation 9 cm and maximum descent 0 station. Nova Landon
[2019-08-23] MEDS: Simethicone 80 MG CHEW 40 MG PO (07:32)
[2019-08-23] MEDS: Ibuprofen 600 MG TAB PO (07:32)
[2019-08-23] MEDS: Acetaminophen 325 MG TAB 650 MG PO (07:32)
[2019-08-23] MEDS: Docusate Sodium 100 MG CAP PO (07:32)
== END 2019-08-23 13:25 | disposition home or self-care (01) | DRG 788 ==
LOC: PDS 06:02 → OBS 09:08
PROVIDERS: Admitting Provider Obstetrics & Gynecology; PCP Family Medicine; Visit Provider Obstetrics & Gynecology
PROC: 10D00Z1 Extraction of Products of Conception, Low, Open Approach (ICD-10-PCS; CPT 59514; principal; 2019-08-20 07:30)
DX: O34.211 Maternal care for low transverse scar from previous cesarean delivery (principal); Z37.0 Single live birth; Z3A.39 39 weeks gestation of pregnancy; O69.81X0 Labor and delivery complicated by cord around neck, without compression, not applicable or unspecified; O13.4 Gestational [pregnancy-induced] hypertension without significant proteinuria, complicating childbirth; O36.63X0 Maternal care for excessive fetal growth, third trimester, not applicable or unspecified; Z86.59 Personal history of other mental and behavioral disorders
CPT/HCPCS: 59514; 36415; 85027; 86850; 86900; 86901; 99223; 99232; 99233; 99238; 85025; J0456; J0690; J1100; J2310; J2405; J2765; J3010

== ENCOUNTER 2021-08-02 16:23 | Outpatient (CLI) | payer MEDICAID, SELFPAY ==
[2021-08-02 12:09] LABS: HCG Quant, Pregnancy 4041 mIU/mL (1-3)
== END 2021-08-02 16:24 | disposition home or self-care (01) ==
LOC: LBO 16:25
PROVIDERS: Visit Provider Obstetrics & Gynecology Gynecology
DX: Z34.91 Encounter for supervision of normal pregnancy, unspecified, first trimester (principal); Z3A.01 Less than 8 weeks gestation of pregnancy
CPT/HCPCS: 36415; 84702

== ENCOUNTER 2021-08-04 03:33 | Outpatient (CLI) | payer MEDICAID, SELFPAY ==
[2021-08-04 14:32] LABS: HCG Quant, Pregnancy 1174 mIU/mL (1-3)
== END 2021-08-04 03:34 | disposition home or self-care (01) ==
LOC: LBO 03:33
PROVIDERS: Visit Provider Obstetrics & Gynecology
DX: O26.851 Spotting complicating pregnancy, first trimester (principal); Z3A.01 Less than 8 weeks gestation of pregnancy
CPT/HCPCS: 36415; 84702

== ENCOUNTER 2021-08-11 04:26 | Outpatient (CLI) | payer MEDICAID, SELFPAY ==
[2021-08-11 10:25] LABS: HCG Quant, Pregnancy 74 mIU/mL (1-3)
== END 2021-08-11 04:27 | disposition home or self-care (01) ==
LOC: LBO 04:26
PROVIDERS: Visit Provider Obstetrics & Gynecology
DX: O26.851 Spotting complicating pregnancy, first trimester (principal); Z3A.01 Less than 8 weeks gestation of pregnancy
CPT/HCPCS: 36415; 84702

== ENCOUNTER 2021-08-17 03:10 | Outpatient (CLI) | payer MEDICAID, SELFPAY | END 2021-08-17 03:11 | disposition home or self-care (01) | LOC: LBO 03:10 | PROVIDERS: Visit Provider Obstetrics & Gynecology Gynecology ==

== ENCOUNTER 2021-08-19 02:54 | Outpatient (CLI) | payer MEDICAID, SELFPAY ==
[2021-08-19 08:05] LABS: HCT 43.6 % (36.0-46.0); HGB 14.1 g/dL (11.2-15.7); MCH 29.7 pg (27.0-33.0); MCHC 32.3 % (32.0-36.0); MCV 92 fL (80-95); MPV 10.2 fL (8.0-11.0); Platelet Count 164 10^3/uL (130-400); RBC 4.74 10^6/uL (3.93-5.22); RDW 12.6 % (11.7-14.6); RDW-SD 42.8 fL; WBC 6.51 10^3/uL (4.4-10.8)
[2021-08-19 09:51] LABS: HCG Quant, Pregnancy 7 mIU/mL (1-3); TSH (W/Ref FT4) 1.68 uIU/mL (0.36-3.74)
== END 2021-08-19 02:55 | disposition home or self-care (01) ==
LOC: LBO 02:54
PROVIDERS: Visit Provider Obstetrics & Gynecology Gynecology
DX: O02.1 Missed abortion (principal)
CPT/HCPCS: 36415; 85027; 84443; 84702

== ENCOUNTER 2022-05-10 14:03 | Outpatient (CLI) | payer MEDICAID, SELFPAY ==
[2022-05-10 14:16] LABS: HCG Quant, Pregnancy 897 mIU/mL (1-3)
== END 2022-05-10 14:04 | disposition home or self-care (01) ==
LOC: LBO 14:04
PROVIDERS: Visit Provider Obstetrics & Gynecology
DX: O20.0 Threatened abortion (principal)
CPT/HCPCS: 36415; 84702

== ENCOUNTER 2022-05-12 03:00 | Outpatient (CLI) | payer MEDICAID, SELFPAY ==
[2022-05-12 15:05] LABS: HCG Quant, Pregnancy 338 mIU/mL (1-3)
== END 2022-05-12 03:01 | disposition home or self-care (01) ==
LOC: LBO 03:00
PROVIDERS: Visit Provider Obstetrics & Gynecology
DX: O20.0 Threatened abortion (principal); Z3A.01 Less than 8 weeks gestation of pregnancy
CPT/HCPCS: 36415; 84702

== ENCOUNTER 2022-05-18 03:05 | Outpatient (CLI) | payer MEDICAID, SELFPAY ==
[2022-05-18 17:06] LABS: HCG Quant, Pregnancy 22 mIU/mL (1-3)
== END 2022-05-18 03:06 | disposition home or self-care (01) ==
PROVIDERS: Visit Provider Obstetrics & Gynecology Gynecology
DX: O03.9 Complete or unspecified spontaneous abortion without complication (principal)
CPT/HCPCS: 36415; 84702

== ENCOUNTER 2022-06-16 02:35 | Outpatient (CLI) | payer MEDICAID, SELFPAY ==
[2022-06-16 09:20] LABS: TSH (W/Ref FT4) 1.37 uIU/mL (0.36-3.74)
[2022-06-16 09:22] LABS: HCG Quant, Pregnancy < 1 mIU/mL (1-3)
[2022-06-16 18:03] LABS: PTT (UVM) 27 secs (26-37)
[2022-06-17 10:01] LABS: D-Dimer (UVM) <150 ng/mL DD (<=230)
[2022-06-17 10:02] LABS: INR 0.9 Ratio (0.9-1.1)
[2022-06-17 10:50] LABS: Antithrombin 3, Funct. 95 % (85-125); Factor 8 Assay 177 % (50-150)
[2022-06-17 21:07] LABS: Phospholipid Ab, IgG <9.4 GPL; Phospholipid Ab, IgM <9.4 MPL
[2022-06-18 15:19] LABS: Beta 2 GP1 Ab IgG <9.4 SGU; Beta 2 GP1 Ab IgM <9.4 SMU
[2022-06-20 13:25] LABS: Dilute Russell Viper Venom 36.8 secs (25.2-42.2); LA Cascade Summary (See Note); Silica Clotting Time 45.9 secs (30.2-48.4)
[2022-06-22 12:16] LABS: Protein C, Functional 106 % (71-199); Protein S, Functional 80 % (64-147)
== END 2022-06-16 02:36 | disposition home or self-care (01) ==
LOC: LBO 02:35
PROVIDERS: Visit Provider Obstetrics & Gynecology
DX: O03.9 Complete or unspecified spontaneous abortion without complication (principal); N96 Recurrent pregnancy loss
CPT/HCPCS: 36415; 81240; 81241; 82784; 85300; 85303; 85306; 85610; 85613; 85730; 85732; 84443; 84702; 85240; 85379; 88230; 88262

== ENCOUNTER 2022-06-20 13:12 | Outpatient (CLI) | payer MEDICAID, SELFPAY ==
[2022-08-01 15:54] LABS: Chromosome Analysis(UVM) (See below)
== END 2022-06-20 13:13 | disposition home or self-care (01) ==
LOC: LBO 13:12
PROVIDERS: Visit Provider Obstetrics & Gynecology
DX: N96 Recurrent pregnancy loss (principal); Z13.79 Encounter for other screening for genetic and chromosomal anomalies
CPT/HCPCS: 88230; 88262

== ENCOUNTER 2022-10-05 04:16 | Outpatient (CLI) | payer MEDICAID, SELFPAY ==
[2022-10-05 12:28] LABS: TSH (W/Ref FT4) 1.68 uIU/mL (0.36-3.74)
[2022-10-05 19:52] LABS: Prolactin 5.5 ng/mL (See Note)
== END 2022-10-05 04:17 | disposition home or self-care (01) ==
LOC: LBO 04:17
PROVIDERS: Visit Provider Obstetrics & Gynecology
DX: N93.8 Other specified abnormal uterine and vaginal bleeding (principal)
CPT/HCPCS: 36415; 84146; 84443

== ENCOUNTER → 2022-10-25 02:15 | Outpatient (CLI) | payer MEDICAID, SELFPAY ==
--- NOTE | 2022-10-25 07:00 | DI.US_ITS ---
Exam(s) US PELVIS TRANSVAGINAL EXAM: US PELVIS TRANSVAGINAL CLINICAL HISTORY: DYSFUNCTIONAL UTERINE BLEEDING,N93.8. TECHNIQUE: Transabdominal and transvaginal pelvic ultrasound was performed using standard protocol. COMPARISON: No priors for comparison. FINDINGS: UTERUS: Position: Anteverted. Size: 8.9 long by 4.4 AP by 5.8 transverse cm Endometrium: 0.5 cm. Normal for patient's menstrual status. Myometrium: Unremarkable. Cervix: Unremarkable. OVARIES: The left ovary cannot be seen transabdominally or transvaginally due to overlying bowel gas. Right: 2.8 x 2 x 2 cm Cyst or mass: No suspicious cystic or solid masses. DOPPLER: Color: Symmetric and uniform flow to the right ovary ovaries. CUL-DE-SAC: Free fluid: None. Other: None. IMPRESSION: 1. Normal-appearing uterus with endometrial stripe within normal limits. 2. Unremarkable right ovary. 3. The left ovary was not visualized on this examination due to overlying bowel gas. DATA REPOSITORY:
== END ==
PROVIDERS: Visit Provider Obstetrics & Gynecology
DX: N93.8 Other specified abnormal uterine and vaginal bleeding (principal)
CPT/HCPCS: 76830; 76856

== ENCOUNTER 2022-12-08 20:18 | Outpatient (CLI) | payer MEDICAID, SELFPAY ==
[2022-12-08 16:38] LABS: HCG Quant, Pregnancy 8860 mIU/mL (1-3)
== END 2022-12-08 20:19 | disposition home or self-care (01) ==
LOC: LBO 20:18
PROVIDERS: Visit Provider Obstetrics & Gynecology
DX: O26.851 Spotting complicating pregnancy, first trimester; Z3A.01 Less than 8 weeks gestation of pregnancy
CPT/HCPCS: 36415; 84702

== ENCOUNTER 2022-12-10 10:44 | Outpatient (CLI) | payer MEDICAID, SELFPAY ==
[2022-12-10 12:34] LABS: HCG Quant, Pregnancy 15721 mIU/mL (1-3)
== END 2022-12-10 10:45 | disposition home or self-care (01) ==
LOC: BCD 12-13 10:44
PROVIDERS: Visit Provider Obstetrics & Gynecology
DX: Z34.91 Encounter for supervision of normal pregnancy, unspecified, first trimester (principal); N96 Recurrent pregnancy loss
CPT/HCPCS: 36415; 84702

== ENCOUNTER → 2022-12-13 10:44 | Outpatient (CLI) | payer MEDICAID, SELFPAY ==
--- NOTE | 2022-12-13 09:30 | DI.US_ITS ---
Exam(s) US OB 1ST TRIMESTER EXAM: US OB 1ST TRIMESTER CLINICAL HISTORY: ? viability,recurr preg loss,O36.80x0. COMPARISON: US US PELVIS TRANSVAGINAL from 10/25/2022 TECHNIQUE: Transabdominal Transvaginal first trimester obstetrical ultrasound performed. FINDINGS: There is an intrauterine gestational sac present. Based on gestational sac diameter this would be co nsistent with a 5 week 4 day gestation. No pole or yolk sac are seen at this time. This may r epresent a very early . There is a small subchorionic hemorrhage adjacent to the gestational sac. There is a small amount of free fluid in the cul-de-sac. The uterus measures 10.5 long by 5.2 AP by 5.9 transverse cm. The right ovary measures 2.4 x 1.8 x 1.4 cm. The left ovary measures 3.0 x 2.5 x 2.5 cm. The ovaries were only seen transabdominally. IMPRESSION: Intrauterine gestational sac visualized. Based on gestational sac diameter, this would be consistent with a 5 week 4 day gestation. No pole yolk sac are visualized at this time. This may repres ent a very early . Follow-up with beta HCG levels and/or repeat obstetrical ultrasound is r ecommended to assess viability. DATA REPOSITORY:
== END ==
PROVIDERS: Visit Provider Obstetrics & Gynecology
DX: N96 Recurrent pregnancy loss (principal); O36.80X1 Pregnancy with inconclusive fetal viability, fetus 1
CPT/HCPCS: 76801

== ENCOUNTER 2023-01-26 02:12 | Outpatient (CLI) | payer MEDICAID, SELFPAY ==
[2023-01-26 11:47] LABS: Panorama Kit Sent via Fed Ex
[2023-01-26 11:58] LABS: Abs Immature Grans 0.04 10^3/uL (0.0-0.06); Absolute Basophil Count 0.03 10^3/uL (0.0-0.2); Absolute Eosinophil Count 0.05 10^3/uL (0.0-0.7); Absolute Lymphocyte Count 1.53 10^3/uL (1.2-3.4); Absolute Monocyte Count 0.58 10^3/uL (0.1-0.8); Absolute Neutrophil Count 4.99 10^3/uL (1.2-6.7); Basophils % 0.4; Eosinophils % 0.7; HCT 39.2 % (36.0-46.0); HGB 13.3 g/dL (11.2-15.7); Immature Grans % 0.6; Lymphocytes % 21.2; MCH 30.5 pg (27.0-33.0); MCHC 33.9 % (32.0-36.0); MCV 90 fL (80-95); MPV 9.5 fL (8.0-11.0); Neutrophils % 69.1; Platelet Count 244 10^3/uL (130-400); RBC 4.36 10^6/uL (3.93-5.22); RDW-SD 39.8 fL; WBC 7.22 10^3/uL (4.4-10.8)
[2023-01-26 12:15] LABS: Glucose,1 Hr (Glucola) 74 mg/dL (80-140)
[2023-01-27 07:26] LABS: Hepatitis B Surface Ag Negative (Negative)
[2023-01-27 08:02] LABS: HIV-1/2 Ag & Ab Screen Negative (Negative)
[2023-01-27 09:07] LABS: Hepatitis C Ab w Rflx HCV PCR Negative (Negative)
[2023-01-27 12:35] LABS: Rubella IgG Ab (UVM) Positive (See Note); Varicella IgG Antibody Positive (See Note)
[2023-01-29 15:33] LABS: Syphilis IgG w/Reflex Nonreactive (Nonreactive)
== END 2023-01-26 02:13 | disposition home or self-care (01) ==
LOC: LBO 02:12
PROVIDERS: Visit Provider Advanced Practice Midwife
DX: O09.521 Supervision of elderly multigravida, first trimester (principal); Z3A.12 12 weeks gestation of pregnancy
CPT/HCPCS: 36415; 82950; 86787; 86803; 86850; 86900; 86901; 87340; 87389; 84443; 85025; 86762; 86780

== ENCOUNTER 2023-01-26 11:28 | Outpatient (REF) | payer MEDICAID, SELFPAY ==
--- NOTE | 2023-01-26 10:30 | PAPFT_PTH ---
PATIENT: Sury Bhandari LOC: [facility] U#:[id number] AGE/SX: 37/F ROOM: RE01/26/[address]: Sharon Rizvi CNM : 1985 BED: DIS: 01/26/2023 SPEC #: [id number] RECD: 01/26/23 12:51 STATUS: [place] REQ #: [id number] MADDI: 01/26/23 10:[address]: Sharon Rizvi DEPT: [facility] Cytology RECD BY: Tess Castellanos ENTERED: 01/26/23 12:51 SP TYPE: PAPFT OTHR DR: Unknown,Unknown Tissues: 1 - CX/ENDOCX FOR PAP SMEARS Procedures: PAP THIN PREP/UVM Screening HPV DNA PROBE Comments: [id number] (CHLAMYDIA/GC)
[2023-01-26 14:22] LABS: *AMPHETAMINES SCREEN URINE Negative (Negative); *BARBITURATES SCREEN URINE Negative (Negative); *BENZODIAZEPINES SCREEN URINE Negative (Negative); Cannabinoids THC Negative (Negative); Cocaine Screen,Urine Negative (Negative); METHADONE URINE SCREEN Negative (Negative); OPIATES URINE SCREEN Negative (Negative); Tricyclic Antidepressants Negative (Negative)
[2023-01-27 18:31] LABS: Chlamydia Result Negative (Negative); GC Result Negative (Negative)
== END 2023-01-26 11:29 | disposition home or self-care (01) ==
LOC: LBN 11:28
PROVIDERS: Visit Provider Advanced Practice Midwife
DX: Z34.91 Encounter for supervision of normal pregnancy, unspecified, first trimester; Z3A.12 12 weeks gestation of pregnancy
CPT/HCPCS: 80307; 87491; 87591; 88142; 87086; 87624

== ENCOUNTER 2023-05-19 02:51 | Outpatient (CLI) | payer MEDICAID, SELFPAY ==
[2023-05-19 09:38] LABS: Abs Immature Grans 0.05 10^3/uL (0.0-0.06); Absolute Basophil Count 0.02 10^3/uL (0.0-0.2); Absolute Eosinophil Count 0.07 10^3/uL (0.0-0.7); Absolute Lymphocyte Count 1.64 10^3/uL (1.2-3.4); Absolute Monocyte Count 0.43 10^3/uL (0.1-0.8); Absolute Neutrophil Count 6.42 10^3/uL (1.2-6.7); Basophils % 0.2; Eosinophils % 0.8; HCT 33.2 % (36.0-46.0); HGB 11.1 g/dL (11.2-15.7); Immature Grans % 0.6; MCH 30.7 pg (27.0-33.0); MCHC 33.4 % (32.0-36.0); MCV 92 fL (80-95); MPV 10.2 fL (8.0-11.0); Neutrophils % 74.4; Platelet Count 216 10^3/uL (130-400); RBC 3.62 10^6/uL (3.93-5.22); RDW 12.8 % (11.7-14.6); RDW-SD 42.9 fL; WBC 8.63 10^3/uL (4.4-10.8)
[2023-05-19 09:54] LABS: Glucose,1 Hr (Glucola) 132 mg/dL (80-140)
== END 2023-05-19 02:52 | disposition home or self-care (01) ==
LOC: LBO 02:51
PROVIDERS: Visit Provider Obstetrics & Gynecology
DX: Z34.92 Encounter for supervision of normal pregnancy, unspecified, second trimester (principal)
CPT/HCPCS: 36415; 82950; 85025

== ENCOUNTER → 2023-06-16 00:55 | Outpatient (CLI) | payer MEDICAID, SELFPAY ==
--- NOTE | 2023-06-16 06:45 | DI.US_ITS ---
Exam(s) US OB KRYSTAL WEIGHT EXAM: US OB KRYSTAL WEIGHT CLINICAL HISTORY: growth,UTERINE SIZE DISCREPANCY,o26.849. TECHNIQUE: Transabdominal obstetrical ultrasound performed. COMPARISON: US US OB 1ST TRIMESTER from 12/13/2022 FINDINGS: Number of fetuses: 1 position: CEPHALIC. The spine is anterior. Placental location: There is a grade 1 anterior placenta. No evidence of previa. BIOMETRIC DATA: BPD: 8.04cm, 32weeks 2days HC: 29.51cm, 32weeks 4days AC: 28.65cm, 32weeks 5days FL: 6.18cm, 32weeks EFW: 1,975.22g, 4lb 6.33oz, 44.3% Composite Age: 32weeks 3days MICHAEL: 08/08/2023 Heart Rate: 135bpm Amniotic fluid index: 13.95cm. Visually, amount of fluid is within normal limits. IMPRESSION: 1. Single live intrauterine gestation as above. 2. Estimated weight is 1975gms. This is the 44th percentile. 3. Amniotic fluid index is 14 cm. Visually within normal limits. DATA REPOSITORY:
== END ==
PROVIDERS: Visit Provider Obstetrics & Gynecology
DX: O26.843 Uterine size-date discrepancy, third trimester (principal); Z3A.32 32 weeks gestation of pregnancy
CPT/HCPCS: 76816

== ENCOUNTER 2023-07-10 09:51 | Outpatient (REF) | payer MEDICAID, SELFPAY | END 2023-07-10 09:52 | disposition home or self-care (01) | LOC: LBN 09:51 | PROVIDERS: Visit Provider Obstetrics & Gynecology | DX: Z34.93 Encounter for supervision of normal pregnancy, unspecified, third trimester (principal); Z36.85 Encounter for antenatal screening for Streptococcus B; Z3A.35 35 weeks gestation of pregnancy | CPT/HCPCS: 87081 ==

== ENCOUNTER 2023-08-01 05:13 | Outpatient (CLI) | payer MEDICAID, SELFPAY ==
[2023-08-01 12:05] LABS: Abs Immature Grans 0.03 10^3/uL (0.0-0.06); Absolute Basophil Count 0.02 10^3/uL (0.0-0.2); Absolute Eosinophil Count 0.03 10^3/uL (0.0-0.7); Absolute Lymphocyte Count 1.61 10^3/uL (1.2-3.4); Absolute Neutrophil Count 5.83 10^3/uL (1.2-6.7); Basophils % 0.2 %; Eosinophils % 0.4 %; HCT 32.6 % (36.0-46.0); HGB 10.4 g/dL (11.2-15.7); Immature Grans % 0.4 %; Lymphocytes % 19.6 %; MCH 28.1 pg (27.0-33.0); MCHC 31.9 % (32.0-36.0); MCV 88 fL (80-95); MPV 11.4 fL (8.0-11.0); Monocytes % 8.5 %; Neutrophils % 70.9 %; Platelet Count 153 10^3/uL (130-400); RDW 12.8 % (11.7-14.6); RDW-SD 40.5 fL; WBC 8.22 10^3/uL (4.4-10.8)
== END 2023-08-01 05:14 | disposition home or self-care (01) ==
LOC: LBO 05:13
PROVIDERS: Visit Provider Obstetrics & Gynecology
DX: O34.211 Maternal care for low transverse scar from previous cesarean delivery (principal); Z3A.38 38 weeks gestation of pregnancy; Z01.818 Encounter for other preprocedural examination; Z01.812 Encounter for preprocedural laboratory examination
CPT/HCPCS: 36415; 86850; 86900; 86901; 85025

== ENCOUNTER 2023-08-02 06:00 | Inpatient (IN) | payer MEDICAID, SELFPAY ==
--- NOTE | 2023-07-03 12:05 | PDOC.ANES ---
Date of service: 07/03/23 Time of Service: 12:06 Anesthesia Note Report Anesthesia Note: Phone call to patient at request of Dr. Ramirez. Patient has anxiety surrounding placement of spinal. States she felt several people staring at her during placement at last c section in 2019. She is requesting that her be present during spinal placement. Two anesthesia providers who are ok with the being present are working on 08/02/23, so it should not be an issue. She also reports some continued sensitivity at the spinal insertion site from almost four years ago. I informed her that though unusual, it is not unheard of. We also discussed that the intrathecal narcotics are an optional addition to the spinal. She recalls having severe itching, and nausea post-op. She will think it over as to whether she would like the intrathecal narcotics this time. Harriett stated feeling better and more relaxed after our conversation.
[2023-08-02] VITALS (15 sets, daily range): BP systolic 110–146; BP diastolic 51–94; PULSE 59–75; RESP 16–20; TEMP 36.2–36.9; O2SAT 98–100; BMI 40.7
--- NOTE | 2023-08-02 06:17 | ANES.PREOP_ITS ---
General Info Date of Service Date Performed: 08/02/23 Height: 5 ft 5 in Weight: 111.13 kg Body Mass Index (BMI): 40.7 Surgical Procedure: Operation Date: 08/02/23 07:40 Proposed Procedure Side Surgeon p Repeat Section Willa Ramirez DO [facility] Allergies and Home Medications Allergies Allergy/AdvReac Type Severity Reaction Status Date / Time No Known Allergies Allergy Verified 07/27/23 14:43 Home Medication Medication Instructions Recorded vitamin no.180-ferrous 1 tab PO DAILY #90 tabs 11/29/22 fumarate 27 mg-folic acid 1 mg tablet ( Plus Vitamin-Mineral) [id number]-[id number] 400 mcg-om3 35 mg-dha 25 1 tab PO DAILY 01/26/23 mg-epa 5 mg-fish oil chewable tablet aspirin 81 mg tablet,delayed 81 mg PO DAILY #90 tabs 01/26/23 release ascorbic acid (vitamin C) 1,000 mg 1 g PO DAILY 05/19/23 capsule docusate sodium 50 mg capsule 50 mg PO DAILY 05/19/23 pantoprazole 20 mg tablet,delayed 20 mg PO DAILY #30 tabs 05/29/23 release (Protonix) Current Visit Medications: Current Medications Generic Name Dose Route Start Last Admin Trade Name Freq PRN Reason Stop Dose Admin Citric Acid/Sodium Citrate 30 ml 08/02/23 06:00 Sodium Citrate 30 Ml Cup PO PREOP PHILIP Cefazolin Sodium/Dextrose 2 gm in 50 mls @ 100 mls/hr 08/02/23 06:45 Ancef Duplex IVPB PREOP PHILIP Azithromycin 500 mg/ Sodium 250 mls @ 250 mls/hr 08/02/23 06:00 Chloride IVPB PREOP PHILIP Ringer's Solution 1,000 mls @ 200 mls/hr 08/02/23 06:00 IV INFUSION PHILIP IV Miscellaneous Supplies 1 each 08/02/23 06:00 Iv Access IV DIRECTED PHILIP Sodium Chloride 0 ml 08/02/23 06:00 Normal Saline Flush 10 Ml Syr IVP PRN PRN Sodium Chloride 0 ml 08/02/23 18:00 Normal Saline Flush 10 Ml Syr IVP BID PHILIP Sodium Chloride 0 ml 08/02/23 06:00 Normal Saline 10 Ml Vial IJ DIRECTED PRN PFSH Active Problems Active Problems: Problem Status Onset Code BMI 35.0-35.9,adult Z68.35 Family history of valvular heart disease Z82.49 History of macrosomia in infant in prior , currently O09.299 Hemorrhoids during O22.40 Previous delivery affecting , antepartum O34.219 Elderly multigravida O09.529 Z34.90 Medical History Medical History (Updated 05/19/23 @ 08:33 by Joseline Sauceda MD) BMI 30.0-30.9,adult 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 5+w EGA. No D&C. Surgical History Surgical History (Updated 01/26/23 @ 10:45 by Sharon Rizvi) section (07/26/12) Primary C/S - male infant 07/26/2012. Arrest of dilation at 9 cm arrest of descent at 0 station despite oxytocin. Tobacco Smoking/Tobacco Use Status: Former Tobacco Use Alcohol Alcohol Intake: former Year quit: 2019 Substance Use Substance use: Never Substance use type: does not use Prental History History 5 Para 2 Hx # Term Pregnancies 2 Multiple births 0 Hx # Pregnancies 0 Ectopic pregnancies 0 AB induced 0 Hx Number of Living Children 2 AB spontaneous 2 Past Pregnancies Del. Date GA/Weeks # Preg Succ Route Wgt Sex Labor Lgth Anesth esia Location Prov Complic Unknown 07/24/12 41 No 4139.03 g Male 24hrs Marina Ribeiro MD [facility] 08/20/19 39 No 4507.574 g Female Madhu Ramirez DO 08/02/21 5 No 05/10/22 5 No Delivery Date: Last Updated by: Sharon Rizvi Delivery Date: 07/24/12 Last Updated by: Nova Landon M.D. Active labor with SROM at 7 cm. From there slow progress with maximum dilation 9 cm and maximum descent 0 station. Delivery Date: 08/20/19 Last Updated by: Willa Lee LPN Repeat elective Delivery Date: 08/02/21 Last Updated by: Joseline Sauceda MD 5wk SAB Delivery Date: 05/10/22 Last Updated by: Joseline Sauceda MD 5wk SAB Vital Signs and Lab Results Lab Results Blood Type / Crossmatch: Antibody Screen NEGATIVE 08/01/23 Complete Blood Count: White Blood Count 8.22 10^3/uL (4.4-10.8) 08/01/23 11:30 Red Blood Count 3.70 10^6/uL (3.93-5.22) L 08/01/23 11:30 Hemoglobin 10.4 g/dL (11.2-15.7) L 08/01/23 11:30 Hematocrit 32.6 % (36.0-46.0) L 08/01/23 11:30 Platelet Count 153 10^3/uL (130-400) 08/01/23 11:30 Complete Metabolic Panel: No Data to Display Liver Function Panel: No Data to Display Coagulation Panel: No Data to Display Cardiac Panel: No Data to Display Arterial Blood Gas: No Data to Display Venous Blood Gas: No Data to Display Pancreas Panel: No Data to Display Thyroid Panel: No Data to Display Infectious Disease: No Data to Display Blood Cultures: No Data to Display Toxicology Panel: No Data to Display Panel: No Data to Display Anesthesia Assessment and Plan Anesthesia History Personal History: No History of Anesthesia Complications Family History: No Family History of Anesthesia Complications Exercise Tolerance Exercise Tolerance: Metabolic Equivalents>4 Pertinent Negatives Pertinent Negatives: Other ((+) GERD, with Rx) Cardiac & Pulmonary Exam Cardiac Exam: Normal S1/S2 Heart Sounds Pulmonary Exam: Clear Bilateral Breath Sounds Implantable Cardiac Device Does patient have a Pacemaker or an ICD?: No Airway Exam Known Difficult Airway: No Mallampati Class: 2 Mouth Opening: Normal (> 3cm) Thyromental Distance: Greater than 3 cm Neck Range of Motion: Full ROM Neck Circumference: Normal Teeth Condition: Normal Dentition ASA Classification ASA Score: ASA 2 Emergency Case?: No NPO Status NPO Status: NPO Clears >2 hours, Solids >8 hours Status Status: Confirmed Anesthesia Plan Resuscitation Status: Full Code Anesthesia Technique: Spinal Anesthesia Airway Planned: Natural Airway Monitors Used: Standard Monitors
[2023-08-02] MEDS: AZITHROMYCIN 500 MG in Normal Saline 250 ML 250 MG IVPB (06:59)
[2023-08-02] MEDS: ceFAZolin 2 GM/50 ML BAG IVPB (07:04)
[2023-08-02] MEDS: Sodium Citrate 30 ML CUP PO (07:05)
[2023-08-02] MEDS: Lactated Ringers 1,000 ML 200 ML IV ×2 (07:39→08:31)
[2023-08-02] MEDS: Bupivacaine 0.25% Pres-Free 30 ML VIAL (08:06)
--- NOTE | 2023-08-02 09:06 | PLAC_PTH ---
PATIENT: Sury Bhandari LOC: [facility] U#:[id number] AGE/SX: 37/F ROOM: OBS.301 RE08/02/[address]: Willa Ramirez DO : 1985 BED: A DIS: 08/04/2023 SPEC #: [id number] RECD: 08/02/23 12:44 STATUS: SOUT REQ #: [id number] MADDI: 08/02/23 09:[address]: Willa Ramirez DEPT: Surgical Specimen RECD BY: Tess Castellanos ENTERED: 08/02/23 12:45 SP TYPE: PLAC OTHR DR: Unknown,Unknown Tissues: 1 - PLACENTA (3RD TRIMESTER) Procedures: GROSS AND MICRO LEVEL 5 Comments: [id number]
--- NOTE | 2023-08-02 09:42 | W.PM.OBCSECT ---
Date of service: 08/02/23 Time of Service: 09:42 Operative Note Operative Note Delivery Method: Scheduled and Repeat Previous LT Incision: Yes DATE OF PROCEDURE: 08/02/23 PRE-OP DIAGNOSES: at 39 weeks, declines trial of labor, previous x 2 Marked adhesions of the mid and lower uterus to the rectus abdominal muscles anterior left. PROCEDURE: Repeat low-transverse section SURGEON: Willa Ramirez Assisting Surgeon: Nova Landon Anesthesia: local and spinal Estimated blood loss (mL): 700 Pathology: other (Placenta for examination) Patient was transported to: PACU Patient's condition: stable Indications: Intrauterine at 39 weeks. Previous section x 2. Declines trial of labor Findings: Delivery of a viable female infant with Apgars 8 and 9. Weight equals 9 pounds 4 ounces. Normal-appearing ovaries and fallopian tubes. Dense adhesions of the mid to lower uterus to the anterior abdominal wall and rectus abdominal muscles. Procedure Description: After full informed consent was obtained and IV was running patient was taken the operating suite. She is placed in the seated position and spinal anesthesia administered. She was then placed in the dorsal supine position with leftward tilt and prepped and draped in the usual sterile fashion. She received antibiotic prophylaxis for surgical site infection. She had pneumatic compression stockings for DVT prophylaxis. Ham catheter was inserted for continuous bladder drainage. Quarter percent Marcaine was used to infiltrate the surgical incision site. A Pfannenstiel skin incision was made through her previous incision and carried down to the underlying fascia. The fascia was nicked in the midline and extended laterally. Rectus muscles were identified in the midline and however there were noted to be dense adhesions to underlying structures. With meticulous sharp dissection omentum was noted adherent to the anterior abdominal wall which was dissected away. A small window was available into the abdominal cavity and retractors were placed. With palpation there was noted to be a dense adhesion band of the uterus to the anterior abdominal wall. This small incision was extended that extended inferiorly and bladder blade was inserted. The lower uterine segment was identified. Bladder was well below the lower uterine segment. An incision was made in the lower uterine segment with artificial rupture of membranes for clear fluid. The vertex was elevated to the uterine incision. With the assistance of a Kiwi vacuum extractor, the vertex was delivered with some manipulation through the uterine incision. There was no evidence of nuchal cord. Shoulders followed with ease. Three-vessel cord was noted clamped x 2 and cut and the was handed off to the waiting director of provider relations. At this point the uterus was exteriorized and inspected. Uterine incision in the lower uterine segment was closed using 0 Monocryl suture in a running locked fashion and noted to be hemostatic. There was an area of the mid uterus to the fundus where dissection from the rectus abdominal muscles had been performed. This vertical incision which was not through the entire myometrium was closed in a 2 layer fashion. 0 Monocryl was used with the first layer being running locked the second being a baseball stitch. There was remaining lower uterine segment portion which was still densely adherent to the anterior abdominal wall. There is no benefit in further dissection of this area due to poor tissue planes, and blood supply. At this point the uterus was returned to the abdomen and both areas were inspected. The lower uterine segment repair was noted to be hemostatic. The repair of the dissection plane from the mid to fundal region of the uterus was also noted to be hemostatic. The fascia was then closed using 0 Vicryl suture in a running fashion. Subcutaneous tissue irrigated with copious amounts of normal saline subcu space was reapproximated with 3-0 Vicryl suture in a simple interrupted fashion. Skin edge reapproximated with 4-0 undyed Monocryl in a subcuticular closure. Mastisol and Steri-Strips were used as well. Mepilex dressing was placed. Patient was taken to the postanesthesia care unit in stable condition. Findings: Delivery of viable female with Apgars 8 and 9. Dense adhesions of the lower uterus to fundal region to the anterior abdominal wall. Normal-appearing tubes, and ovaries. EBL: 700 mL Pathology: Placenta for examination Fluids: Crystalloid per anesthesia. [place] [facility] Gender: Female
--- NOTE | 2023-08-02 11:20 | W.ANESPOSTOP ---
Postoperative Evaluation Date, Time and Location Date Performed: 08/02/23 Time Performed: 11:21 Patient Location: Obstetrics Vital Signs Most Recent Imported Vital Signs: Most Recent Vital Signs Temp Pulse Resp BP Pulse Ox 36.3 C L 65 18 126/61 99 08/02/23 10:06 08/02/23 10:06 08/02/23 10:06 08/02/23 10:06 08/02/23 10:06 Pain Score Most Recent Pain Score: Most Recent Pain Score Pain Level 0 08/02/23 10:06 Assessment Mental Status: Awake (Alert & Oriented to Patient Baseline) Airway and Respiratory Function: Patent airway with normal (patient baseline) respiratory exam Cardiovascular Function: Hemodynamically Stable Hydration Status: Adequately Hydrated Nausea & Vomiting: No Nausea or Vomiting Pain: Pt. Denies Any Pain Peripheral Nerve Block: Patient did not receive a nerve block
[2023-08-02] MEDS: oxyCODONE 5 mg/Acetaminophen 325 mg TAB PO ×2 (13:45→17:30)
[2023-08-02] MEDS: Ketorolac 30 MG/ML VIAL IVP ×2 (15:21→21:52)
[2023-08-02] MEDS: Acetaminophen 325 MG TAB 650 MG PO (17:29)
--- NOTE | 2023-08-02 20:43 | W.PM.OBPNV1 ---
Date of service: 08/02/23 Time of Service: 20:43 Assessment and Plan Assessment and plan (1) Status post repeat low transverse section: Status: Acute Assessment and plan: Postoperative day #0 status post repeat low-transverse section. Significant adhesions of the uterus to the anterior abdominal wall. Extensive lysis of adhesions. Anticipate routine postoperative and care. Subjective Subjective Interval history: Patient seen postop day 0 doing well. Vital signs are stable. Urine output is appropriate. Pain is under good control at this point. Findings of her surgery discussed again this evening. All questions answered. baby status: Doing well, Nursing well and Strong Bonding Observed Exam Physical Exam Vital signs: Temp Pulse Resp BP Pulse Ox 98.1 F 65 16 122/67 98 08/02/23 17:53 08/02/23 17:53 08/02/23 17:53 08/02/23 17:53 08/02/23 17:53 Vital Signs Reviewed: Yes
[2023-08-03 02:05] VITALS: BP 118/64; PULSE 61; RESP 18; TEMP 36.6
[2023-08-03] MEDS: Ketorolac 30 MG/ML VIAL IVP (04:20)
[2023-08-03] MEDS: oxyCODONE 5 mg/Acetaminophen 325 mg TAB PO ×4 (06:21→21:12)
[2023-08-03 06:40] LABS: Abs Immature Grans 0.04 10^3/uL (0.0-0.06); Absolute Basophil Count 0.04 10^3/uL (0.0-0.2); Absolute Eosinophil Count 0.08 10^3/uL (0.0-0.7); Absolute Lymphocyte Count 2.29 10^3/uL (1.2-3.4); Absolute Monocyte Count 0.76 10^3/uL (0.1-0.8); Absolute Neutrophil Count 6.96 10^3/uL (1.2-6.7); Basophils % 0.4 %; Eosinophils % 0.8 %; HCT 26.3 % (36.0-46.0); HGB 8.4 g/dL (11.2-15.7); Immature Grans % 0.4 %; Lymphocytes % 22.5 %; MCH 28.1 pg (27.0-33.0); MCHC 31.9 % (32.0-36.0); MCV 88 fL (80-95); MPV 11.9 fL (8.0-11.0); Monocytes % 7.5 %; Neutrophils % 68.4 %; Platelet Count 149 10^3/uL (130-400); RBC 2.99 10^6/uL (3.93-5.22); RDW 13.2 % (11.7-14.6); WBC 10.17 10^3/uL (4.4-10.8)
--- NOTE | 2023-08-03 06:58 | W.PM.OBPNV1 ---
Date of service: 08/03/23 Time of Service: 06:58 Assessment and Plan Assessment and plan (1) Status post repeat low transverse section: Status: Acute Assessment and plan: day 1 status post repeat low to for section. Doing well. Hemoglobin stable. Vital signs are stable. Increase activity. DC Ham catheter and IV. Anticipate discharge home tomorrow Subjective Subjective Interval history: Patient seen and examined this morning. Doing well. Hemoglobin stable at 8.4. Pain is well-controlled. Urine output is brisk. Breast-feeding without difficulty. Reasonable pain control this morning. No issues or concerns. Patient's Mood: Appropriate baby status: Doing well, Nursing well and Strong Bonding Observed Exam Physical Exam Vital signs: Temp Pulse Resp BP Pulse Ox 97.8 F 61 18 118/64 98 08/03/23 02:05 08/03/23 02:05 08/03/23 02:05 08/03/23 02:05 08/02/23 17:53 Vital Signs Reviewed: Yes Constitutional Constitutional: no acute distress HEENT Exam HEENT Exam: Normal Neck Exam Neck Exam: Normal Respiratory Exam Respiratory Exam: Normal Cardiovascular Exam Cardiovascular Exam: Normal Abdominal Exam Abdomen: Tender Comments: Mepilex dressing in place Fundal Exam Fundus: Below Umbilicus and Firm Extremities Exam Extremity Exam: Normal and Edema (1+ bilateral); negative Calf Tenderness Skin Exam Skin Exam: Normal Neurological Exam Neurological Exam: Normal Psychiatric Exam Psychiatric Exam: Normal Results Hemoglobin/Hematocrit: Hgb 8.4 g/dL (11.2-15.7) L D 08/03/23 06:00 Hct 26.3 % (36.0-46.0) L 08/03/23 06:00 Abnormal Lab Findings: Abnormal Labs 08/03/23 06:00 RBC 2.99 L Hgb 8.4 L D Hct 26.3 L MCHC 31.9 L MPV 11.9 H Absolute Neutrophils 6.96 H
[2023-08-03 07:15] VITALS: BP 121/67; PULSE 65; RESP 16; TEMP 36.7; O2SAT 99
[2023-08-03] MEDS: Ibuprofen 600 MG TAB PO ×2 (10:52→17:27)
[2023-08-03] MEDS: Docusate Sodium 100 MG CAP PO ×2 (10:54→17:28)
[2023-08-03 11:15] VITALS: BP 124/66; PULSE 68; RESP 16; TEMP 37; O2SAT 98
[2023-08-03 16:00] VITALS: BP 128/63; PULSE 64; RESP 16; TEMP 36.8; O2SAT 99
[2023-08-03 20:10] VITALS: BP 125/68; PULSE 72; RESP 17; TEMP 36.8; O2SAT 99
[2023-08-04] MEDS: Ibuprofen 600 MG TAB PO ×2 (04:29→10:30)
[2023-08-04] MEDS: oxyCODONE 5 mg/Acetaminophen 325 mg TAB PO ×2 (04:29→09:13)
[2023-08-04 08:00] VITALS: BP 149/75; PULSE 82; RESP 18; TEMP 36.5; O2SAT 98
--- NOTE | 2023-08-04 08:41 | W.PM.OBPNV1 ---
Date of service: 08/04/23 Time of Service: 20:00 Exam Physical Exam Vital signs: Temp Pulse Resp BP Pulse Ox 98.2 F 72 17 125/68 99 08/03/23 20:10 08/03/23 20:10 08/03/23 20:10 08/03/23 20:10 08/03/23 20:10 Results Hemoglobin/Hematocrit: Hgb 8.4 g/dL (11.2-15.7) L D 08/03/23 06:00 Hct 26.3 % (36.0-46.0) L 08/03/23 06:00 Abnormal Lab Findings: Abnormal Labs 08/03/23 06:00 RBC 2.99 L Hgb 8.4 L D Hct 26.3 L MCHC 31.9 L MPV 11.9 H Absolute Neutrophils 6.96 H
--- NOTE | 2023-08-04 09:59 | W.PM.OBDISCH ---
Date of service: 08/04/23 Time of Service: 10:00 DS: Diagnosis Discharge Diagnosis (1) Status post repeat low transverse section: Status: Acute Discharge Plan Disposition Patient Disposition: Home Condition: Improving Discharge Details Reason For Visit: Delivery Admit Date/Time: 08/02/23 06:00 Admit Provider: Willa Ramirez Attending Provider: Willa Ramirez Primary Care Provider: Unknown,Unknown Hospital Course Hospital Course: Pt admitted the morning of surgery and underwent rLTCS of a viable female Jennifer 08/02/2023. Significant adhesions of the mid uterus to the fundus to the anterior abdominal wall and the rectus muscles. She was advised by Dr. Ramirez after the surgery to not have any more pregnancies based on the difficulty with establishing normal anatomy during the surgery.Post op course was uncomplicated and she was discharged to home on POD 2 successfully breast feeding and using limited amount of Percocet and Ibuprofen for pain. She has f/u visit next week for removal of Mepilex dressing. Home Meds and New Rx's Prescriptions: No Action Plus Vitamin-Mineral 27 mg iron- 1 mg tablet 1 tab PO DAILY Qty: 90 6RF [id number] oil 400 mcg-35 mg -25 mg-5 mg tablet,chewable 1 tab PO DAILY aspirin 81 mg tablet,delayed release (DR/EC) 81 mg PO DAILY Qty: 90 4RF Rx Instructions: 1 tab daily, alternate with two tabs every other day ascorbic acid (vitamin C) 1,000 mg capsule 1 g PO DAILY docusate sodium 50 mg capsule 50 mg PO DAILY pantoprazole [Protonix] 20 mg tablet,delayed release (DR/EC) 20 mg PO DAILY Qty: 30 4RF Discharge Instructions Stand Alone Forms: BC Instructions, BC Discharge Instruc Activity:: Activity as Tolerated Equipment/Supplies:: No Equipment Needed Diet:: As Tolerated Discharge Orders Discharge Orders: Discharge Order (Routine); Ordered 08/04/23 Ordered By: Nova Landon OB:NOREEN Summary Contraception Discussed Contraception Discussed: Yes Contraceptive Plan: Vasectomy, Infant Gender-Baby A: Female weight: 9 lb 3 oz Disposition of Baby A: Home Status at Discharge Functional status at discharge: independent ambulation Overall status at discharge: patient is progressing back to baseline Mental Status: mental status grossly normal Speech and Movement: speech and movement normal Mood: congruent mood Affect: normal affect Quality:SDOH Health Related Social Needs: No Data to Display Exam Physical Exam Vital signs: Temp Pulse Resp BP Pulse Ox 98.2 F 72 17 125/68 99 08/03/23 20:10 08/03/23 20:10 08/03/23 20:10 08/03/23 20:10 08/03/23 20:10 Vital Signs Reviewed: Yes Notable Details: normal Constitutional Constitutional: no acute distress Neck Exam Neck Exam: Normal Respiratory Exam Respiratory Exam: Normal Cardiovascular Exam Cardiovascular Exam: Normal Abdominal Exam Abdomen: Other (Mepilex dressing in place) Fundal Exam Fundus: Below Umbilicus Rectal Exam Rectal Exam: Not Done Extremities Exam Extremity Exam: Normal and Edema (bilateral non-pitting LE edema) Back/Spine/Pelvis Exam Back Exam: Not Done Neurological Exam Neurological Exam: Normal Psychiatric Exam Psychiatric Exam: Normal PFSH All Active Problems (Updated 05/19/23 @ 08:33 by Joseline Sauceda MD) Status post repeat low transverse section (Acute) Female infant Jennifer 08/02/2023. Significant adhesions of the mid uterus to the fundus to the anterior abdominal wall and the rectus muscles. 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 5+w EGA. No D&C. Surgical History (Updated 08/02/23 @ 20:45 by Willa Ramirez DO) section (07/26/12) Primary C/S - male infant 07/26/2012. Arrest of dilation at 9 cm arrest of descent at 0 station despite oxytocin. Family History Maternal Grandfather Cancer Paternal Grandfather Cancer Aunt Cancer Aunt Cancer Paternal Grandmother Dementia Social History Smoking/Tobacco Use Status: Former Tobacco Use Smoking risk assessment performed?: Yes Alcohol Intake: former Year quit: 2019 Drug use: Never Substance use type: does not use Household members: children and other Details: [facility] Housing: house Number of Children: 1 Sexually active: Yes Seatbelt use: always Do you feel safe at home: Yes Do you feel safe in your relationship?: Yes Female Reproductive History Menstrual control method: none History History 5 Para 2 Hx # Term Pregnancies 2 Multiple births 0 Hx # Pregnancies 0 Ectopic pregnancies 0 AB induced 0 Hx Number of Living Children 2 AB spontaneous 2 Past Pregnancies Del. Date GA/Weeks # Preg Succ Route Wgt Sex Labor Lgth Anesthesia Location Prov Complic Unknown 07/24/12 41 No 9 lb 2 oz Male 24hrs Galilea Ribeiro MD [place] 08/20/19 39 No 9 lb 15 oz Female Willa Ramirez DO 08/02/21 5 No 05/10/22 5 No Delivery Date: Last Updated by: Sharon Rizvi Delivery Date: 07/24/12 Last Updated by: Nova Landon M.D. Active labor with SROM at 7 cm. From there slow progress with maximum dilation 9 cm and maximum descent 0 station. Delivery Date: 08/20/19 Last Updated by: Willa Lee LPN Repeat elective Delivery Date: 08/02/21 Last Updated by: Joseline Sauceda MD 5wk SAB Delivery Date: 05/10/22 Last Updated by: Joseline Sauceda MD 5wk [facility] DS: Data Vitals/I&O Vitals and I&O: Vital Signs Temperature 98.2 F 08/03/23 20:10 Temperature 98.4 F 08/02/23 06:49 Temperature Source Oral 08/02/23 10:30 Temperature Source Oral 08/03/23 20:10 Pulse 72 08/03/23 20:10 Pulse 75 08/02/23 06:49 Pulse Rhythm Regular 08/03/23 20:10 Respiratory Rate 17 08/03/23 20:10 Respiratory Depth Normal 08/03/23 20:10 Blood Pressure 125/68 08/03/23 20:10 Blood Pressure 131/69 08/02/23 06:49 Blood Pressure Mean 87 08/03/23 20:10 Pulse Oximetry 99 08/03/23 20:10 Oxygen Delivery Method Room Air 08/02/23 10:06 Oxygen Flow Rate 0 08/02/23 10:00 Pain Level 6 08/04/23 09:13 Intake & Output 08/03/23 08/03/23 08/04/23 11:59 23:59 11:59 Intake Total 550 / 550 Output Total 1949 Balance -1400 / -1400 Intake: Oral 550 / 550 Output: Urine 1949 Other: Urine Color Yellow Yellow Urine Appearance Clear
[2023-08-04] MEDS: Simethicone 80 MG CHEW 160 MG PO (10:30)
== END 2023-08-04 11:05 | disposition home or self-care (01) | DRG 788 ==
PROVIDERS: Admitting Provider Obstetrics & Gynecology; Visit Provider Obstetrics & Gynecology
PROC: 10D00Z1 Extraction of Products of Conception, Low, Open Approach (ICD-10-PCS; CPT 59514; principal; 2023-08-02 07:30)
DX: O34.211 Maternal care for low transverse scar from previous cesarean delivery (principal); O99.824 Streptococcus B carrier state complicating childbirth; Z37.0 Single live birth; O99.892 Other specified diseases and conditions complicating childbirth; N73.6 Female pelvic peritoneal adhesions (postinfective); Z3A.38 38 weeks gestation of pregnancy
CPT/HCPCS: 59514; 36415; 85025; 88307; J0456; J0665; J0690; J1100; J1885; J2274; J2371; J2405; J3010

== ENCOUNTER 2024-08-01 01:08 | Outpatient (CLI) | payer MEDICAID, SELFPAY ==
--- NOTE | 2024-08-01 07:30 | DI.US_ITS ---
Exam(s) US PELVIS TRANSVAGINAL EXAM: US PELVIS TRANSVAGINAL CLINICAL HISTORY: anatomy,DYSFUNCTIONAL UTERINE BLEEDING,N93.8. TECHNIQUE: Transabdominal and transvaginal pelvic ultrasound was performed using standard protocol. COMPARISON: US US PELVIS TRANSVAGINAL from 10/25/2022 US US OB KRYSTAL WEIGHT from 06/16/2023 FINDINGS: UTERUS: Position: Anteverted. Size: 9.2 long by 3.7 AP by 5.7 transverse cm Endometrium: 0.6 cm. Normal for patient's menstrual status. Myometrium: Unremarkable. Cervix: Unremarkable. OVARIES: The left ovary was not visualized on this examination. No suspicious left adnexal masses ar e present. Right: 3.8 x 2.3 x 3.3 cm Cyst or mass: No suspicious cystic or solid masses. DOPPLER: Color: Blood flow seen to the right ovary. CUL-DE-SAC: Free fluid: None. Other: None. IMPRESSION: 1. Normal-appearing uterus with endometrial stripe within normal limits. 2. The right ovary is unremarkable. 3. The left ovary was not visualized on this examination. No suspicious left adnexal masses are seen sonographically. DATA REPOSITORY:
== END 2024-08-01 01:28 ==
LOC: DI 01:08
PROVIDERS: Visit Provider Obstetrics & Gynecology
DX: N93.8 Other specified abnormal uterine and vaginal bleeding (principal)
CPT/HCPCS: 76830; 76856

== ENCOUNTER 2024-08-01 01:41 | Outpatient (CLI) | payer MEDICAID, SELFPAY ==
[2024-08-01 12:38] LABS: Abs Immature Grans 0.01 10^3/uL (0.0-0.06); Absolute Basophil Count 0.04 10^3/uL (0.0-0.2); Absolute Eosinophil Count 0.08 10^3/uL (0.0-0.7); Absolute Lymphocyte Count 1.41 10^3/uL (1.2-3.4); Absolute Monocyte Count 0.49 10^3/uL (0.1-0.8); Basophils % 0.6 %; Eosinophils % 1.3 %; HCT 41.1 % (36.0-46.0); HGB 13.5 g/dL (11.2-15.7); Immature Grans % 0.2 %; Lymphocytes % 22.6 %; MCH 28.9 pg (27.0-33.0); MCHC 32.8 % (32.0-36.0); MCV 88 fL (80-95); MPV 9.8 fL (8.0-11.0); Monocytes % 7.9 %; Neutrophils % 67.4 %; Platelet Count 215 10^3/uL (130-400); RBC 4.67 10^6/uL (3.93-5.22); RDW 12.4 % (11.7-14.6); RDW-SD 39.8 fL; WBC 6.23 10^3/uL (4.4-10.8)
[2024-08-01 13:19] LABS: TSH (W/Ref FT4) 1.45 uIU/mL (0.36-3.74)
== END 2024-08-01 01:42 | disposition home or self-care (01) ==
PROVIDERS: Visit Provider Obstetrics & Gynecology
DX: N93.8 Other specified abnormal uterine and vaginal bleeding (principal)
CPT/HCPCS: 36415; 84443; 85025